=== PATIENT | male | born 1965 | race African-American/Black ===

== ENCOUNTER 2016-09-09 11:48 | Inpatient (IN) | payer OTHER ==
[2016-09-09 14:40] VITALS: BMI 33.2
[2016-09-09] MEDS ORDERED: IBUPROFEN 400 MG TABLET (FP) PO PRN (17:14)
[2016-09-09] MEDS ORDERED: MENTHOL/PHENOL 1 EACH UD MM PRN (17:14)
[2016-09-09] MEDS ORDERED: NICOTINE 14 MG/24 HOURS TOPICAL PATCH TD PRN (17:14)
[2016-09-09] MEDS ORDERED: MAGNESIUM HYDROX 2400MG/30ML ORAL SUSPENSION 30 ML CUP PO PRN (17:14)
[2016-09-09] MEDS ORDERED: guaiFENesin/D-METHORPHAN HB 10 ML UNIT-DOSE CUPS PO PRN (17:14)
[2016-09-09] MEDS ORDERED: MAG HYDROX/AL HYDROX/SIMETH 30 ML UNIT-DOSE CUP PO PRN (17:14)
[2016-09-09] MEDS ORDERED: hydrOXYzine PAMOATE 50 MG CAPSULE (FP) PO PRN (17:14)
[2016-09-09] MEDS ORDERED: NICOTINE POLACRILEX 2 MG GUM BUC PRN (17:14)
[2016-09-09] MEDS ORDERED: ACETAMINOPHEN 325 MG TABLET (FP) PO PRN (17:14)
[2016-09-09] MEDS ORDERED: MAGNESIUM CITRATE 300 ML BOTTLE PO PRN (17:14)
[2016-09-09] MEDS ORDERED: LOPERAMIDE HCL 2 MG CAPSULE PO PRN (17:14)
[2016-09-09] MEDS ORDERED: chlordiazePOXIDE HCL 25 MG CAPSULE PO PRN (17:14)
[2016-09-09] MEDS ORDERED: P-EPHED 60MG/TRIPROLIDI 2.5MG TABLET PO PRN (17:14)
--- NOTE | 2016-09-09 17:14 | HP ---
CIWA Score - CIWA Score Nausea/Vomitin-Mild Nausea/No Vomiting Muscle Tremors: 3 Anxiety: 4-Mod. Anxious/Guarded Agitation: 4-Moderately Restless Paroxysmal Sweats: 2 Orientation: 0-Oriented Tacttile Disturbances: 0-None Auditory Disturbances: 0-None Visual Disturbances: 0-None Headache: 2-Mild CIWA-Ar Total Score: 16 Admission ROS BHS - HPI Chief Complaint: withdrawal sx Allergies/Adverse Reactions: Allergies Allergy/AdvReac Type Severity Reaction Status Date / Time No Known Allergies Allergy Verified 09/09/16 16:26 History of Present Illness: 51 years old male with long history of alcohol cocaine nicotine dependence dejesus hypertension and depression, longest sobriety 5 years is admitted to detox Exam Limitations: No Limitations - Ebola screening Have you traveled outside of the country in the last 21 days: No Have you had contact with anyone from an Ebola affected area: No Have you been sick,other than usual withdrawal symptoms: No Do you have a fever: No - Review of Systems Constitutional: Chills, Changes in sleep, Weight Stable EENT: reports: Dental Problems (upper and lower denture) Respiratory: reports: No Symptoms reported Cardiac: reports: No Symptoms Reported GI: reports: Nausea, Poor Fluid Intake, Abdominal cramping : reports: No Symptoms Reported Musculoskeletal: reports: No Symptoms Reported Integumentary: reports: No Symptoms Reported Neuro: reports: Tremors Endocrine: reports: No Symptoms Reported Hematology: reports: No Symptoms Reported Psychiatric: reports: Judgement Intact, Orientated x3, Depressed Other Systems: Reviewed and Negative Patient History - Patient Medical History Hx Anemia: No Hx Asthma: No Hx Chronic Obstructive Pulmonary Disease (COPD): No Hx Cancer: No Hx Cardiac Disorders: No Hx Congestive Heart Failure: No Hx Hypertension: Yes (NON COMPLIANT WITH MEDS) Hx Hypercholesterolemia: No Hx Pacemaker: No HX Cerebrovascular Accident: No Hx Seizures: No Hx Dementia: No Hx Diabetes: No Hx Gastrointestinal Disorders: No Hx Liver Disease: No Hx Genitourinary Disorders: No Hx Sexually Transmitted Disorders: No Hx Renal Disease (ESRD): No Hx Thyroid Disease: No Hx Human Immunodeficiency Virus (HIV): No (NEGATIVE ON 11/24/11) Hx Hepatitis C: No (tested neg within last year) Hx Depression: Yes Hx Suicide Attempt: No Hx Bipolar Disorder: No Hx Schizophrenia: No - Patient Surgical History Past Surgical History: Yes Hx Neurologic Surgery: No Hx Cataract Extraction: No Hx Cardiac Surgery: No Hx Lung Surgery: No Hx Breast Surgery: No Hx Breast Biopsy: No Hx Abdominal Surgery: No Hx Appendectomy: No Hx Cholecystectomy: No Hx Genitourinary Surgery: No Hx Orthopedic Surgery: Yes (RIGHT THUMB DUE TO FX FROM PLAYING BALL) Anesthesia Reaction: No - PPD History Previous Implant?: Yes Documented Results: Negative w/o proof Implanted On Prior [facility] Admission?: Yes Date: 11/04/14 Results: 0 mm PPD to be Administered?: Yes - Smoking Cessation Smoking history: Current every day smoker Have you smoked in the past 12 months: Yes Aproximately how many cigarettes per day: 10 Cigars Per Day: 0 Hx Chewing Tobacco Use: No Initiated information on smoking cessation: Yes 'Breaking Loose' booklet given: 09/09/16 - Substance & Tx. History Hx Alcohol Use: Yes Hx Substance Use: Yes Substance Use Type: Alcohol, Cocaine Hx Substance Use Treatment: Yes - Substances Abused Alcohol Route: Oral Frequency: Daily Amount used: 1/2 PINT-1 PINT/ 6PK BEER Age of first use: 16 Date of Last Use: 09/09/16 Cocaine Route: Smoking Frequency: Daily Amount used: $100 Age of first use: 25 Date of Last Use: 09/08/16 Family Disease History - Family Disease History Family Disease History: Diabetes: Father (), Heart Disease: Father, CA: Mother () Admission Physical Exam BHS - Vital Signs Vital Signs: Vital Signs - 24 hr 09/09/16 14:39 Temperature 98.1 F Pulse Rate 99 H Respiratory 18 Rate Blood Pressure 145/84 - Physical General Appearance: Yes: Nourished, Appropriately Dressed, Mild Distress, Tremorous, Irritable, Sweating, Anxious HEENTM: Yes: Hearing grossly Normal, Normal ENT Inspection, Normocephalic, Normal Voice Respiratory: Yes: Chest Non-Tender, Lungs Clear, Normal Breath Sounds, No Respiratory Distress, No Accessory Muscle Use Neck: Yes: Supple, Trachea in good position Breast: Yes: Breasts Symetrical Cardiology: Yes: Regular Rhythm, S1, S2, Tachycardia Abdominal: Yes: Non Tender, Soft Genitourinary: Yes: Within Normal Limits Back: Yes: Normal Inspection Musculoskeletal: Yes: full range of Motion, Gait Steady Extremities: Yes: Normal Inspection, Normal Range of Motion, Non-Tender, Tremors 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: Yes: Fully Oriented, Alert, Motor Strength 5/5, Normal Response, Depressed Affect Integumentary: Yes: Warm Lymphatic: Yes: Within Normal Limits - Diagnostic (1) Alcohol dependence with uncomplicated withdrawal Current Visit: Yes Status: Acute (2) HTN (hypertension) Current Visit: Yes Status: Chronic Qualifiers: Hypertension type: essential hypertension Qualified Code(s): I10 - Essential (primary) hypertension (3) Cocaine dependence with withdrawal Current Visit: Yes Status: Chronic Cleared for Admission [facility] - Detox or Rehab [facility] Level of Care: Medically Managed Detox Regimen/Protocol: Librium [facility] Breath Alcohol Content Breath Alcohol Content: 0 Urine Drug Screen - Results Drug Screen Negative: No Urine Drug Screen Results: ACE-Cocaine
[2016-09-09] MEDS: HYDROCHLOROTHIAZIDE 25 MG TABLET (FP) PO SCH (18:35)
[2016-09-09] MEDS: THIAMINE HCL 100 MG TABLET (FP) PO SCH (22:13)
[2016-09-09] MEDS: diphenhydrAMINE HCL 50 MG CAPSULE PO PRN (22:13)
[2016-09-09] MEDS: chlordiazePOXIDE HCL 25 MG CAPSULE PO SCH (22:13)
[2016-09-09 23:24] LABS: URINE APPEARANCE CLEAR; URINE BILIRUBIN NEGATIVE (NEGATIVE); URINE BLOOD NEGATIVE (NEGATIVE); URINE COLOR YELLOW; URINE GLUCOSE (UA) NEGATIVE (NEGATIVE); URINE KETONE NEGATIVE (NEGATIVE); URINE LEUK ESTERASE NEGATIVE (NEGATIVE); URINE NITRITE NEGATIVE (NEGATIVE); URINE PROTEIN NEGATIVE (NEGATIVE); URINE UROBILINOGEN 2.0 E.U/dl E.U./dl (0.2-1.0)
[2016-09-10] MEDS: chlordiazePOXIDE HCL 25 MG CAPSULE PO SCH ×4 (05:37→22:12)
[2016-09-10] MEDS: HYDROCHLOROTHIAZIDE 25 MG TABLET (FP) PO SCH (10:20)
[2016-09-10] MEDS: PRENATAL VITAMINS W/ FOLIC ACID TABLET (FP) PO SCH (10:20)
--- NOTE | 2016-09-10 10:57 | CONSULT ---
[facility] Psychiatric Consult - Data Date of interview: 09/10/16 Admission source: [facility] Identifying data: Readmission to [facility] for this 51 y/o AA male seeking detox treatment for alcohol and cocaine dependence.Patient is single without children,homeless,unemployed and supported on Public Assistance. Substance Abuse History: - Smoking Cessation. Smoking history: Current every day smoker. Have you smoked in the past 12 months: Yes. Aproximately how many cigarettes per day: 10. Cigars Per Day: 0. Hx Chewing Tobacco Use: No. Initiated information on smoking cessation: Yes. 'Breaking Loose' booklet given : 09/09/16. - Substance & Tx. History. Hx Alcohol Use: Yes. Hx Substance Use : Yes. Substance Use Type: Alcohol, Cocaine. Hx Substance Use Treatment: Yes. - Substances Abused. Alcohol. Route: Oral. Frequency: Daily. Amount used: 1/2 PINT-1 PINT/ 6PK BEER. Age of first use: 16. Date of Last Use: 09/09. Cocaine. Route: Smoking. Frequency: Daily. Amount used: $100. Age of first use: 25. Date of Last Use: 09/08/16. Confirmed by patient. Medical History: Hypertension. Psychiatric History: Patient denies. Physical/Sexual Abuse/Trauma History: Patient denies. Additional Comment: Urine Drug Screen Results: ACE-Cocaine.Noted. Mental Status Exam - Mental Status Exam Alert and Oriented to: Time, Place, Person Cognitive Function: Good Patient Appearance: Well Groomed Mood: Hopeful, Euthymic Affect: Appropriate, Normal Range Patient Behavior: Fatigued, Cooperative Speech Pattern: Clear, Appropriate Voice Loudness: Normal Thought Process: Goal Oriented Thought Disorder: Not Present Hallucinations: Denies Suicidal Ideation: Denies Homicidal Ideation: Denies Insight/Judgement: Poor Sleep: Well Appetite: Good Muscle strength/Tone: Normal Gait/Station: Normal Psychiatric Findings - Problem List ([place] 1, 2,3) (1) Alcohol dependence with uncomplicated withdrawal Current Visit: Yes Status: Acute (2) Cocaine dependence with withdrawal Current Visit: Yes Status: Acute (3) Nicotine dependence Current Visit: Yes Status: Acute (4) HTN (hypertension) Current Visit: Yes Status: Chronic Qualifiers: Hypertension type: essential hypertension Qualified Code(s): I10 - Essential (primary) hypertension - Initial Treatment Plan Initial Treatment Plan: Psychoeducation.Detoxification.Observation.
[2016-09-10 11:16] LABS: MCHC 33.4 g/dl (32.0-35.9); MEAN CELL VOLUME 92.8 fl (80-96); MEAN PLT VOLUME 9.8 fl (7.5-11.1); PLATELET COUNT 193 K/MM3 (134-434); RDW 14.4 % (11.9-15.9); WHITE BLOOD COUNT 6.2 K/mm3 (4.0-10.0)
[2016-09-10 11:26] LABS: ALBUMIN 3.1 g/dl (3.4-5.0); ALK PHOS 176 U/L (45-117); ANION GAP 8 (8-16); BILIRUBIN,TOTAL 0.7 mg/dL (0.2-1.0); CALCIUM 8.6 mg/dL (8.5-10.1); CO2 27 mmol/L (21-32); COCKROFT - GAULT 116.19; GLUCOSE,RANDOM 86 mg/dL (74-106); SGOT/AST 122 U/L (15-37); SGPT/ALT 166 U/L (12-78); TOT PROT 6.9 g/dl (6.4-8.2)
--- NOTE | 2016-09-10 11:26 | EKG ---
Test Reason : Blood Pressure : / mmHG Vent. Rate : 093 BPM Atrial Rate : 093 BPM P-R Int : 154 ms QRS Dur : 090 ms QT Int : 384 ms P-R-T Axes : 063 057 052 degrees QTc Int : 477 ms NORMAL SINUS RHYTHM NORMAL ECG NO PREVIOUS ECGS AVAILABLE Confirmed by DIEGO STEINER MD ([id number]) on 09/10/2016 11:25:46 AM Referred By: Confirmed By:DIEGO STEINER MD
[2016-09-10 12:26] LABS: HIV 1 & 2 AB NEGATIVE; HIV 1 AGp24 NEGATIVE
--- NOTE | 2016-09-10 13:36 | PN ---
[facility] CIWA - CIWA Score Nausea/Vomitin-Mild Nausea/No Vomiting Muscle Tremors: 4-Moderate,w/Arms Extend Anxiety: 3 Agitation: 2 Paroxysmal Sweats: 1-Minimal Palms Moist Orientation: 0-Oriented Tacttile Disturbances: 0-None Auditory Disturbances: 1-Very Mild Visual Disturbances: 3-Moderate Sensitivity Headache: 0-None Present CIWA-Ar Total Score: 15 S Progress Note (SOAP) Subjective: Tremors, H/A, Anxious. Objective: PT. A & O X 3. PT. REPORTS HISTORY OF HTN. PT. DENIES CHEST PAIN. 09/10/16 13:36 Vital Signs Temperature 96.4 F L 09/10/16 13:35 Pulse Rate 101 H 09/10/16 13:35 Respiratory Rate 16 09/10/16 13:35 Blood Pressure 143/95 09/10/16 13:35 O2 Sat by Pulse Oximetry (%) Laboratory Last Values WBC 6.2 K/mm3 (4.0-10.0) 09/10/16 07:40 RBC 4.72 M/mm3 (4.00-5.60) 09/10/16 07:40 Hgb 14.6 GM/dL (11.7-16.9) 09/10/16 07:40 Hct 43.8 % (35.4-49) 09/10/16 07:40 MCV 92.8 fl (80-96) 09/10/16 07:40 MCHC 33.4 g/dl (32.0-35.9) 09/10/16 07:40 RDW 14.4 % (11.9-15.9) 09/10/16 07:40 Plt Count 193 K/MM3 (134-434) 09/10/16 07:40 MPV 9.8 fl (7.5-11.1) 09/10/16 07:40 Sodium 140 mmol/L (136-145) 09/10/16 07:40 Potassium 4.1 mmol/L (3.5-5.1) 09/10/16 07:40 Chloride 105 mmol/L (98-107) 09/10/16 07:40 Carbon Dioxide 27 mmol/L (21-32) 09/10/16 07:40 Anion Gap 8 (8-16) 09/10/16 07:40 BUN 15 mg/dL (7-18) D 09/10/16 07:40 Creatinine 1.0 mg/dL (0.7-1.3) 09/10/16 07:40 Creat Clearance w eGFR > 60 (>60) 09/10/16 07:40 Random Glucose 86 mg/dL (74-106) 09/10/16 07:40 Calcium 8.6 mg/dL (8.5-10.1) 09/10/16 07:40 Total Bilirubin 0.7 mg/dL (0.2-1.0) D 09/10/16 07:40 AST 122 U/L (15-37) H 09/10/16 07:40 ALT 166 U/L (12-78) H 09/10/16 07:40 Alkaline Phosphatase 176 U/L (45-117) H D 09/10/16 07:40 Total Protein 6.9 g/dl (6.4-8.2) 09/10/16 07:40 Albumin 3.1 g/dl (3.4-5.0) L 09/10/16 07:40 Urine Color Yellow 09/09/16 21:24 Urine Appearance Clear 09/09/16 21:24 Urine pH 5.0 (5.0-8.0) 09/09/16 21:24 Ur Specific [place] 1.025 (1.001-1.035) 09/09/16 21:24 Urine Protein Negative (NEGATIVE) 09/09/16 21:24 Urine Glucose (UA) Negative (NEGATIVE) 09/09/16 21:24 Urine Ketones Negative (NEGATIVE) 09/09/16 21:24 Urine Blood Negative (NEGATIVE) 09/09/16 21:24 Urine Nitrite Negative (NEGATIVE) 09/09/16 21:24 Urine Bilirubin Negative (NEGATIVE) 09/09/16 21:24 Urine Urobilinogen 2.0 e.u/dl E.U./dl (0.2-1.0) 09/09/16 21:24 Ur Leukocyte Esterase Negative (NEGATIVE) 09/09/16 21:24 RPR Titer Nonreactive (NONREACTIVE) 09/10/16 07:40 HIV 1&2 Antibody Screen Negative 09/10/16 07:40 HIV P24 Antigen Negative 09/10/16 07:40 LABS NOTED. 09/10/16 13:39 Assessment: 09/10/16 13:38 WITHDRAWAL SYMPTOMS. Plan: CONTINUE DETOX. CONTINUE TO MONITOR BP. ADVISED PATIENT TO FOLLOW-UP WITH CATTLE CARE WORKER / REHAB MEDICAL PROVIDER AFTER DISCHARGE FROM DETOX FOR GENERAL MEDICAL ASSESSMENT AND FOR ABNORMAL ADMISSION LAB VALUES.
[2016-09-10] MEDS: THIAMINE HCL 100 MG TABLET (FP) PO SCH (22:12)
[2016-09-10] MEDS: diphenhydrAMINE HCL 50 MG CAPSULE PO PRN (22:13)
[2016-09-11] MEDS: chlordiazePOXIDE HCL 25 MG CAPSULE PO SCH ×3 (06:11→17:30)
[2016-09-11] MEDS: PRENATAL VITAMINS W/ FOLIC ACID TABLET (FP) PO SCH (10:17)
[2016-09-11] MEDS: HYDROCHLOROTHIAZIDE 25 MG TABLET (FP) PO SCH (10:17)
--- NOTE | 2016-09-11 12:58 | PN ---
S CIWA - CIWA Score Nausea/Vomitin-Mild Nausea/No Vomiting Muscle Tremors: 3 Anxiety: 4-Mod. Anxious/Guarded Agitation: 4-Moderately Restless Paroxysmal Sweats: No Perspiration Orientation: 0-Oriented Tacttile Disturbances: 1-Very Mild Itch/Numbness Auditory Disturbances: 0-None Visual Disturbances: 0-None Headache: 2-Mild CIWA-Ar Total Score: 15 BHS Progress Note (SOAP) Subjective: Anxious, restless, interrupted sleep, diarrhea Objective: 09/11/16 12:53 Last Vital Signs Temp Pulse Resp BP Pulse Ox 96.1 F L 98 H 18 146/92 09/11/16 09:47 09/11/16 09:47 09/11/16 09:47 09/11/16 09:47 Laboratory Tests 09/09/16 09/10/16 09/10/16 21:24 07:40 07:40 WBC 6.2 RBC 4.72 Hgb 14.6 Hct 43.8 MCV 92.8 MCHC 33.4 RDW 14.4 Plt Count 193 MPV 9.8 Sodium Potassium Chloride Carbon Dioxide Anion Gap BUN Creatinine Creat Clearance w eGFR Random Glucose Calcium Total Bilirubin AST ALT Alkaline Phosphatase Total Protein Albumin Urine Color Yellow Urine Appearance Clear Urine pH 5.0 Ur Specific [place] 1.025 Urine Protein Negative Urine Glucose (UA) Negative Urine Ketones Negative Urine Blood Negative Urine Nitrite Negative Urine Bilirubin Negative Urine Urobilinogen 2.0 e.u/dl Ur Leukocyte Esterase Negative RPR Titer HIV 1&2 Antibody Screen Negative HIV P24 Antigen Negative 09/10/16 09/10/16 07:40 07:40 WBC RBC Hgb Hct MCV MCHC RDW Plt Count MPV Sodium 140 Potassium 4.1 Chloride 105 Carbon Dioxide 27 Anion Gap 8 BUN 15 D Creatinine 1.0 Creat Clearance w eGFR > 60 Random Glucose 86 Calcium 8.6 Total Bilirubin 0.7 D AST 122 H ALT 166 H Alkaline Phosphatase 176 H D Total Protein 6.9 Albumin 3.1 L Urine Color Urine Appearance Urine pH Ur Specific [place] Urine Protein Urine Glucose (UA) Urine Ketones Urine Blood Urine Nitrite Urine Bilirubin Urine Urobilinogen Ur Leukocyte Esterase RPR Titer Nonreactive HIV 1&2 Antibody Screen HIV P24 Antigen Labs noted Assessment: 09/11/16 12:54 Withdrawal symptoms Plan: Continue detox, encouraged to drink lots of water. Add clonidine 0.1mg PO Q8hr prn for b/p > 140/90, continue HCTZ 25mg PO daily for HTN), continue to monitor ; consider adding norvasc 5mg PO daily if warranted.
[2016-09-11] MEDS: cloNIDine HCL 0.1 MG TABLET PO PRN (13:23)
[2016-09-11] MEDS: chlordiazePOXIDE 5 MG CAPSULE PO SCH (22:33)
[2016-09-11] MEDS: THIAMINE HCL 100 MG TABLET (FP) PO SCH (22:33)
[2016-09-11] MEDS: diphenhydrAMINE HCL 50 MG CAPSULE PO PRN (22:33)
[2016-09-12] MEDS: chlordiazePOXIDE 5 MG CAPSULE PO SCH ×3 (06:00→17:50)
[2016-09-12] MEDS: cloNIDine HCL 0.1 MG TABLET PO PRN (06:26)
[2016-09-12] MEDS: PRENATAL VITAMINS W/ FOLIC ACID TABLET (FP) PO SCH (10:08)
[2016-09-12] MEDS: HYDROCHLOROTHIAZIDE 25 MG TABLET (FP) PO SCH (10:08)
--- NOTE | 2016-09-12 11:19 | PN ---
BHS Progress Note (SOAP) Subjective: Sweating,interrupted sleep,restless Objective: 09/12/16 11:18 Vital Signs - 8 hr 09/12/16 09/12/16 09/12/16 03:36 06:40 09:09 Temperature 96.4 F L 96.3 F L Pulse Rate 95 H 95 H Respiratory 18 18 20 Rate Blood Pressure 143/103 127/89 Laboratory Last Values WBC 6.2 K/mm3 (4.0-10.0) 09/10/16 07:40 RBC 4.72 M/mm3 (4.00-5.60) 09/10/16 07:40 Hgb 14.6 GM/dL (11.7-16.9) 09/10/16 07:40 Hct 43.8 % (35.4-49) 09/10/16 07:40 MCV 92.8 fl (80-96) 09/10/16 07:40 MCHC 33.4 g/dl (32.0-35.9) 09/10/16 07:40 RDW 14.4 % (11.9-15.9) 09/10/16 07:40 Plt Count 193 K/MM3 (134-434) 09/10/16 07:40 MPV 9.8 fl (7.5-11.1) 09/10/16 07:40 Sodium 140 mmol/L (136-145) 09/10/16 07:40 Potassium 4.1 mmol/L (3.5-5.1) 09/10/16 07:40 Chloride 105 mmol/L (98-107) 09/10/16 07:40 Carbon Dioxide 27 mmol/L (21-32) 09/10/16 07:40 Anion Gap 8 (8-16) 09/10/16 07:40 BUN 15 mg/dL (7-18) D 09/10/16 07:40 Creatinine 1.0 mg/dL (0.7-1.3) 09/10/16 07:40 Creat Clearance w eGFR > 60 (>60) 09/10/16 07:40 Random Glucose 86 mg/dL (74-106) 09/10/16 07:40 Calcium 8.6 mg/dL (8.5-10.1) 09/10/16 07:40 Total Bilirubin 0.7 mg/dL (0.2-1.0) D 09/10/16 07:40 AST 122 U/L (15-37) H 09/10/16 07:40 ALT 166 U/L (12-78) H 09/10/16 07:40 Alkaline Phosphatase 176 U/L (45-117) H D 09/10/16 07:40 Total Protein 6.9 g/dl (6.4-8.2) 09/10/16 07:40 Albumin 3.1 g/dl (3.4-5.0) L 09/10/16 07:40 Urine Color Yellow 09/09/16 21:24 Urine Appearance Clear 09/09/16 21:24 Urine pH 5.0 (5.0-8.0) 09/09/16 21:24 Ur Specific [place] 1.025 (1.001-1.035) 09/09/16 21:24 Urine Protein Negative (NEGATIVE) 09/09/16 21:24 Urine Glucose (UA) Negative (NEGATIVE) 09/09/16 21:24 Urine Ketones Negative (NEGATIVE) 09/09/16 21:24 Urine Blood Negative (NEGATIVE) 09/09/16 21:24 Urine Nitrite Negative (NEGATIVE) 09/09/16 21:24 Urine Bilirubin Negative (NEGATIVE) 09/09/16 21:24 Urine Urobilinogen 2.0 e.u/dl E.U./dl (0.2-1.0) 09/09/16 21:24 Ur Leukocyte Esterase Negative (NEGATIVE) 09/09/16 21:24 RPR Titer Nonreactive (NONREACTIVE) 09/10/16 07:40 HIV 1&2 Antibody Screen Negative 09/10/16 07:40 HIV P24 Antigen Negative 09/10/16 07:40 labs noted Assessment: 09/12/16 11:18 Withdrawal sx. Plan: Continue detox
[2016-09-12] MEDS: chlordiazePOXIDE HCL 10 MG CAPSULE PO SCH (22:11)
[2016-09-12] MEDS: diphenhydrAMINE HCL 50 MG CAPSULE PO PRN (22:11)
[2016-09-12] MEDS: THIAMINE HCL 100 MG TABLET (FP) PO SCH (22:11)
[2016-09-13] MEDS: chlordiazePOXIDE HCL 10 MG CAPSULE PO SCH (05:38)
[2016-09-13] MEDS: cloNIDine HCL 0.1 MG TABLET PO PRN (06:21)
[2016-09-13 09:34] VITALS: BP 132/78; PULSE 84; TEMP 96.4
--- NOTE | 2016-09-13 09:47 | DS ---
[facility] Detox Discharge Summary Admission Date: 09/09/16 Discharge Date: 09/13/16 - History Present History: Alcohol Dependence, Cannabis Dependence, Cocaine Dependence Pertinent Past History: HTN - Physical Exam Results Vital Signs: Vital Signs Temperature 96.4 F L 09/13/16 09:33 Pulse Rate 84 09/13/16 09:33 Respiratory Rate 18 09/13/16 09:33 Blood Pressure 132/78 09/13/16 09:33 O2 Sat by Pulse Oximetry (%) Pertinent Admission Physical Exam Findings: Withdrawal sx. Laboratory Last Values WBC 6.2 K/mm3 (4.0-10.0) 09/10/16 07:40 RBC 4.72 M/mm3 (4.00-5.60) 09/10/16 07:40 Hgb 14.6 GM/dL (11.7-16.9) 09/10/16 07:40 Hct 43.8 % (35.4-49) 09/10/16 07:40 MCV 92.8 fl (80-96) 09/10/16 07:40 MCHC 33.4 g/dl (32.0-35.9) 09/10/16 07:40 RDW 14.4 % (11.9-15.9) 09/10/16 07:40 Plt Count 193 K/MM3 (134-434) 09/10/16 07:40 MPV 9.8 fl (7.5-11.1) 09/10/16 07:40 Sodium 140 mmol/L (136-145) 09/10/16 07:40 Potassium 4.1 mmol/L (3.5-5.1) 09/10/16 07:40 Chloride 105 mmol/L (98-107) 09/10/16 07:40 Carbon Dioxide 27 mmol/L (21-32) 09/10/16 07:40 Anion Gap 8 (8-16) 09/10/16 07:40 BUN 15 mg/dL (7-18) D 09/10/16 07:40 Creatinine 1.0 mg/dL (0.7-1.3) 09/10/16 07:40 Creat Clearance w eGFR > 60 (>60) 09/10/16 07:40 Random Glucose 86 mg/dL (74-106) 09/10/16 07:40 Calcium 8.6 mg/dL (8.5-10.1) 09/10/16 07:40 Total Bilirubin 0.7 mg/dL (0.2-1.0) D 09/10/16 07:40 AST 122 U/L (15-37) H 09/10/16 07:40 ALT 166 U/L (12-78) H 09/10/16 07:40 Alkaline Phosphatase 176 U/L (45-117) H D 09/10/16 07:40 Total Protein 6.9 g/dl (6.4-8.2) 09/10/16 07:40 Albumin 3.1 g/dl (3.4-5.0) L 09/10/16 07:40 Urine Color Yellow 09/09/16 21:24 Urine Appearance Clear 09/09/16 21:24 Urine pH 5.0 (5.0-8.0) 09/09/16 21:24 Ur Specific [place] 1.025 (1.001-1.035) 09/09/16 21:24 Urine Protein Negative (NEGATIVE) 09/09/16 21:24 Urine Glucose (UA) Negative (NEGATIVE) 09/09/16 21:24 Urine Ketones Negative (NEGATIVE) 09/09/16 21:24 Urine Blood Negative (NEGATIVE) 09/09/16 21:24 Urine Nitrite Negative (NEGATIVE) 09/09/16 21:24 Urine Bilirubin Negative (NEGATIVE) 09/09/16 21:24 Urine Urobilinogen 2.0 e.u/dl E.U./dl (0.2-1.0) 09/09/16 21:24 Ur Leukocyte Esterase Negative (NEGATIVE) 09/09/16 21:24 RPR Titer Nonreactive (NONREACTIVE) 09/10/16 07:40 HIV 1&2 Antibody Screen Negative 09/10/16 07:40 HIV P24 Antigen Negative 09/10/16 07:40 labs noted - Treatment Hospital Course: Detox Protocol Followed, Detoxed Safely, Responded well, Discharged Condition Good, Rehab Referral Accepted Patient has Accepted a Rehab Referral to: [facility] - Medication Discharge Medications: Ambulatory Orders Hctz 25Mg/Triamterene [Dyazide 25/37.5 -] 1 cap PO DAILY #30 cap 09/13/16 - Diagnosis (1) Alcohol dependence with uncomplicated withdrawal Current Visit: Yes Status: Acute (2) Cocaine dependence with withdrawal Current Visit: Yes Status: Acute (3) Nicotine dependence Current Visit: Yes Status: Acute Qualifiers: Nicotine product type: cigarettes Substance use status: uncomplicated Qualified Code(s): F17.210 - Nicotine dependence, cigarettes, uncomplicated (4) HTN (hypertension) Current Visit: Yes Status: Chronic Qualifiers: Hypertension type: essential hypertension Qualified Code(s): I10 - Essential (primary) hypertension (5) Cannabis dependence Current Visit: Yes Status: Acute - AMA Did Patient Leave Against Medical Advice: No
== END 2016-09-13 09:44 | disposition home or self-care (01) | DRG 774 ==
LOC: YASAS 11:48 → Y3N 17:21
PROVIDERS: ADMIT Internal Medicine; ATTEND Internal Medicine
PROC: HZ2ZZZZ Detoxification Services for Substance Abuse Treatment (ICD-10-PCS; principal; 2016-09-13)
DX: F10.230 Alcohol dependence with withdrawal, uncomplicated (principal); F14.20 Cocaine dependence, uncomplicated; F12.20 Cannabis dependence, uncomplicated; F17.210 Nicotine dependence, cigarettes, uncomplicated; F32.9 Major depressive disorder, single episode, unspecified; I10 Essential (primary) hypertension; Z91.14 Patient's other noncompliance with medication regimen
CPT/HCPCS: 36415; 80053; 81003; 85027; 86593; 87389; 93005; 93010

== ENCOUNTER 2016-12-10 15:28 | Inpatient (IN) | payer OTHER ==
[2016-12-10 16:05] VITALS: BMI 31.6
--- NOTE | 2016-12-10 17:30 | HP ---
CIWA Score - CIWA Score Nausea/Vomitin Muscle Tremors: 3 Anxiety: 3 Agitation: 3 Paroxysmal Sweats: 3 Orientation: 2-Disoriented Date<2 days Tacttile Disturbances: 0-None Auditory Disturbances: 0-None Visual Disturbances: 0-None Headache: 0-None Present CIWA-Ar Total Score: 17 Admission ROS BHS - HPI Chief Complaint: Withdrawal sx. Allergies/Adverse Reactions: Allergies Allergy/AdvReac Type Severity Reaction Status Date / Time No Known Allergies Allergy Verified 09/09/16 16:26 History of Present Illness: 51 y/o man with a long hx. of alcoholism is admitted for detox.Pt. has been in previous detox,denies significant sobriety. Exam Limitations: No Limitations - Ebola screening Have you traveled outside of the country in the last 21 days: No Have you had contact with anyone from an Ebola affected area: No Have you been sick,other than usual withdrawal symptoms: No Do you have a fever: No - Review of Systems Constitutional: Diaphoresis EENT: reports: No Symptoms Reported Respiratory: reports: No Symptoms reported Cardiac: reports: No Symptoms Reported GI: reports: Nausea, Abdominal cramping : reports: No Symptoms Reported Musculoskeletal: reports: Joint Pain Integumentary: reports: Sweating Neuro: reports: Tremors Endocrine: reports: No Symptoms Reported Hematology: reports: No Symptoms Reported Psychiatric: reports: No Sypmtoms Reported Other Systems: Reviewed and Negative Patient History - Patient Medical History Hx Anemia: No Hx Asthma: No Hx Chronic Obstructive Pulmonary Disease (COPD): No Hx Cancer: No Hx Cardiac Disorders: No Hx Congestive Heart Failure: No Hx Hypertension: Yes Hx Hypercholesterolemia: No Hx Pacemaker: No HX Cerebrovascular Accident: No Hx Seizures: No Hx Dementia: No Hx Diabetes: No Hx Gastrointestinal Disorders: No Hx Liver Disease: No Hx Genitourinary Disorders: No Hx Sexually Transmitted Disorders: No Hx Renal Disease (ESRD): No Hx Thyroid Disease: No Hx Human Immunodeficiency Virus (HIV): No Hx Hepatitis C: No Hx Depression: Yes (no meds) Hx Suicide Attempt: No Hx Bipolar Disorder: No Hx Schizophrenia: No - Patient Surgical History Past Surgical History: Yes Hx Neurologic Surgery: No Hx Cataract Extraction: No Hx Cardiac Surgery: No Hx Lung Surgery: No Hx Breast Surgery: No Hx Breast Biopsy: No Hx Abdominal Surgery: No Hx Appendectomy: No Hx Cholecystectomy: No Hx Genitourinary Surgery: No Hx Section: No Hx Orthopedic Surgery: Yes (RIGHT THUMB DUE TO FX FROM PLAYING BALL) Anesthesia Reaction: No - PPD History Date: 09/11/16 Results: 0 mm PPD to be Administered?: No - Smoking Cessation Smoking history: Current every day smoker Have you smoked in the past 12 months: Yes Aproximately how many cigarettes per day: 10 Cigars Per Day: 0 Hx Chewing Tobacco Use: No Initiated information on smoking cessation: Yes 'Breaking Loose' booklet given: 12/10/16 - Substances Abused Alcohol Route: Oral Frequency: Daily Amount used: beer 1 1/2(6pack) Age of first use: Date of Last Use: 12/10/16 Crack Route: Smoking Frequency: Daily Amount used: $100.00 Age of first use: 25 Date of Last Use: 12/10/16 Marijuana/Hashish Route: Smoking Frequency: Daily Amount used: 1 joint Age of first use: Date of Last Use: 12/08/16 Family Disease History - Family Disease History Family Disease History: Diabetes: Father (), Heart Disease: Father, [place]: Mother () Admission Physical Exam S - Vital Signs Vital Signs: Vital Signs - 24 hr 12/10/16 15:58 Temperature 97.5 F L Pulse Rate 91 H Respiratory 20 Rate Blood Pressure 119/77 - Physical General Appearance: Yes: Alcohol on Breath, Tremorous, Irritable, Sweating, Anxious HEENTM: Yes: Within Normal Limits Respiratory: Yes: Chest Non-Tender, Lungs Clear, Normal Breath Sounds Neck: Yes: Supple Breast: Yes: Breast Exam Deferred Cardiology: Yes: Regular Rhythm, Regular Rate, S1, S2 Abdominal: Yes: Normal Bowel Sounds, Non Tender, Soft Genitourinary: Yes: Within Normal Limits Back: Yes: Within Normal Limits Musculoskeletal: Yes: Within Normal Limits Extremities: Yes: Tremors 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: Yes: Fully Oriented, Alert Integumentary: Yes: Diaphoresis Lymphatic: Yes: Within Normal Limits - Diagnostic (1) Alcohol dependence with uncomplicated withdrawal Current Visit: Yes Status: Acute (2) Cannabis dependence Current Visit: Yes Status: Acute (3) Cocaine dependence with withdrawal Current Visit: Yes Status: Acute (4) HTN (hypertension) Current Visit: Yes Status: Chronic Qualifiers: Hypertension type: essential hypertension Qualified Code(s): I10 - Essential (primary) hypertension Cleared for Admission [facility] - Detox or Rehab [facility] Level of Care: Medically Managed Detox Regimen/Protocol: Librium [facility] Breath Alcohol Content Breath Alcohol Content: 0.042 Urine Drug Screen - Results Drug Screen Negative: No Urine Drug Screen Results: THC-Marijuana, ACE-Cocaine, BZO-Benzodiazepines
[2016-12-10] MEDS ORDERED: P-EPHED 60MG/TRIPROLIDI 2.5MG TABLET PO PRN (17:40)
[2016-12-10] MEDS ORDERED: guaiFENesin/D-METHORPHAN HB 10 ML UNIT-DOSE CUPS PO PRN (17:40)
[2016-12-10] MEDS ORDERED: MENTHOL/PHENOL 1 EACH UD MM PRN (17:40)
[2016-12-10] MEDS ORDERED: ACETAMINOPHEN 325 MG TABLET (FP) PO PRN (17:40)
[2016-12-10] MEDS ORDERED: LOPERAMIDE HCL 2 MG CAPSULE PO PRN (17:40)
[2016-12-10] MEDS ORDERED: MAGNESIUM CITRATE 300 ML BOTTLE PO PRN (17:40)
[2016-12-10] MEDS ORDERED: chlordiazePOXIDE HCL 25 MG CAPSULE PO PRN (17:40)
[2016-12-10] MEDS ORDERED: NICOTINE POLACRILEX 2 MG GUM BUC PRN (17:40)
[2016-12-10] MEDS ORDERED: chlordiazePOXIDE HCL 25 MG CAPSULE PO ONE (17:40)
[2016-12-10] MEDS ORDERED: IBUPROFEN 400 MG TABLET (FP) PO PRN (17:40)
[2016-12-10] MEDS ORDERED: MAGNESIUM HYDROX 2400MG/30ML ORAL SUSPENSION 30 ML CUP PO PRN (17:40)
[2016-12-10] MEDS: NICOTINE 21 MG/24 HOURS TOPICAL PATCH TD SCH (19:13)
[2016-12-10 22:30] LABS: URINE APPEARANCE CLEAR; URINE BILIRUBIN NEGATIVE (NEGATIVE); URINE BLOOD NEGATIVE (NEGATIVE); URINE COLOR AMBER; URINE GLUCOSE (UA) NEGATIVE (NEGATIVE); URINE KETONE NEGATIVE (NEGATIVE); URINE LEUK ESTERASE NEGATIVE (NEGATIVE); URINE NITRITE NEGATIVE (NEGATIVE); URINE PROTEIN NEGATIVE (NEGATIVE)
[2016-12-10] MEDS: THIAMINE HCL 100 MG TABLET (FP) PO SCH (22:38)
[2016-12-10] MEDS: chlordiazePOXIDE HCL 25 MG CAPSULE PO SCH (22:38)
[2016-12-10] MEDS: diphenhydrAMINE HCL 50 MG CAPSULE PO PRN (22:39)
[2016-12-11] MEDS: chlordiazePOXIDE HCL 25 MG CAPSULE PO SCH ×4 (05:37→22:21)
[2016-12-11 10:30] LABS: ALBUMIN 2.8 g/dl (3.4-5.0); ANION GAP 5 (8-16); CALCIUM 8.4 mg/dL (8.5-10.1); CO2 28 mmol/L (21-32); CREATININE 1.1 mg/dL (0.7-1.3); GLUCOSE,RANDOM 88 mg/dL (74-106); SGOT/AST 90 U/L (15-37); SGPT/ALT 129 U/L (12-78)
[2016-12-11 10:32] LABS: ALK PHOS 167 U/L (45-117); BILIRUBIN,TOTAL 0.4 mg/dL (0.2-1.0); MCH 31.2 pg (25.7-33.7); MCHC 34.3 g/dl (32.0-35.9); MEAN CELL VOLUME 90.9 fl (80-96); MEAN PLT VOLUME 9.6 fl (7.5-11.1); PLATELET COUNT 190 K/MM3 (134-434); RDW 13.9 % (11.9-15.9); TOT PROT 6.3 g/dl (6.4-8.2); WHITE BLOOD COUNT 5.7 K/mm3 (4.0-10.0)
[2016-12-11] MEDS: HYDROCHLOROTHIAZIDE 25 MG TABLET (FP) PO SCH (10:47)
[2016-12-11] MEDS: PRENATAL VITAMINS W/ FOLIC ACID TABLET (FP) PO SCH (10:47)
[2016-12-11] MEDS: NICOTINE 21 MG/24 HOURS TOPICAL PATCH TD SCH (10:47)
--- NOTE | 2016-12-11 16:36 | PN ---
S CIWA - CIWA Score Nausea/Vomitin Muscle Tremors: 4-Moderate,w/Arms Extend Anxiety: 4-Mod. Anxious/Guarded Agitation: 4-Moderately Restless Paroxysmal Sweats: 3 Orientation: 0-Oriented Tacttile Disturbances: 1-Very Mild Itch/Numbness Auditory Disturbances: 0-None Visual Disturbances: 0-None Headache: 2-Mild CIWA-Ar Total Score: 21 BHS Progress Note (SOAP) Subjective: Sweating, anxious, chills, tremor, interrupted sleep Objective: 12/11/16 16:34 Last Vital Signs Temp Pulse Resp BP Pulse Ox 96.4 F L 81 18 140/83 12/11/16 14:09 12/11/16 14:09 12/11/16 14:09 12/11/16 14:09 Laboratory Tests 12/10/16 12/11/16 12/11/16 21:00 07:45 07:45 WBC 5.7 RBC 4.45 Hgb 13.9 Hct 40.4 MCV 90.9 MCH 31.2 MCHC 34.3 RDW 13.9 Plt Count 190 MPV 9.6 Sodium 140 Potassium 4.0 Chloride 107 Carbon Dioxide 28 Anion Gap 5 L BUN 16 Creatinine 1.1 Creat Clearance w eGFR > 60 Random Glucose 88 Calcium 8.4 L Total Bilirubin 0.4 D AST 90 H D ALT 129 H D Alkaline Phosphatase 167 H Total Protein 6.3 L Albumin 2.8 L Urine Color Nneka Urine Appearance Clear Urine pH 5.0 Ur Specific [place] >= 1.030 H Urine Protein Negative Urine Glucose (UA) Negative Urine Ketones Negative Urine Blood Negative Urine Nitrite Negative Urine Bilirubin Negative Urine Urobilinogen 2.0 Ur Leukocyte Esterase Negative RPR Titer 12/11/16 07:45 WBC RBC Hgb Hct MCV MCH MCHC RDW Plt Count MPV Sodium Potassium Chloride Carbon Dioxide Anion Gap BUN Creatinine Creat Clearance w eGFR Random Glucose Calcium Total Bilirubin AST ALT Alkaline Phosphatase Total Protein Albumin Urine Color Urine Appearance Urine pH Ur Specific [place] Urine Protein Urine Glucose (UA) Urine Ketones Urine Blood Urine Nitrite Urine Bilirubin Urine Urobilinogen Ur Leukocyte Esterase RPR Titer Nonreactive Labs noted Assessment: 12/11/16 16:35 Withdrawal symptoms Plan: Continue detox Encouraged to drink lots of water
[2016-12-11] MEDS: THIAMINE HCL 100 MG TABLET (FP) PO SCH (22:21)
[2016-12-11] MEDS: diphenhydrAMINE HCL 50 MG CAPSULE PO PRN (22:21)
[2016-12-12] MEDS: chlordiazePOXIDE HCL 25 MG CAPSULE PO SCH ×3 (06:02→17:12)
--- NOTE | 2016-12-12 09:59 | EKG ---
Test Reason : Blood Pressure : / mmHG Vent. Rate : 078 BPM Atrial Rate : 078 BPM P-R Int : 154 ms QRS Dur : 088 ms QT Int : 424 ms P-R-T Axes : 054 045 050 degrees QTc Int : 483 ms NORMAL SINUS RHYTHM PROLONGED QT ABNORMAL ECG WHEN COMPARED WITH ECG OF 09-SEP-2016 17:38, NO SIGNIFICANT CHANGE WAS FOUND Confirmed by MARIS CHAVEZ MD ([id number]) on 12/12/2016 9:58:39 AM Referred By: Confirmed By:MARIS CHAVEZ MD
[2016-12-12] MEDS: HYDROCHLOROTHIAZIDE 25 MG TABLET (FP) PO SCH (10:49)
[2016-12-12] MEDS: NICOTINE 21 MG/24 HOURS TOPICAL PATCH TD SCH (10:49)
[2016-12-12] MEDS: PRENATAL VITAMINS W/ FOLIC ACID TABLET (FP) PO SCH (10:49)
--- NOTE | 2016-12-12 13:24 | PN ---
[facility] CIWA - CIWA Score Nausea/Vomitin-No Nausea/No Vomiting Muscle Tremors: 3 Anxiety: 3 Agitation: 3 Paroxysmal Sweats: 3 Orientation: 0-Oriented Tacttile Disturbances: 0-None Auditory Disturbances: 0-None Visual Disturbances: 0-None Headache: 0-None Present CIWA-Ar Total Score: 12 S Progress Note (SOAP) Subjective: Sweating,interrupted sleep,restless,tremors,anxiety. Objective: 12/12/16 13:23 Vital Signs - 8 hr 12/12/16 12/12/16 12/12/16 06:26 07:35 09:34 Temperature 97 F L 97.9 F Pulse Rate 87 82 90 Respiratory 18 18 Rate Blood Pressure 154/92 120/81 141/101 Laboratory Last Values WBC 5.7 K/mm3 (4.0-10.0) 12/11/16 07:45 RBC 4.45 M/mm3 (4.00-5.60) 12/11/16 07:45 Hgb 13.9 GM/dL (11.7-16.9) 12/11/16 07:45 Hct 40.4 % (35.4-49) 12/11/16 07:45 MCV 90.9 fl (80-96) 12/11/16 07:45 MCH 31.2 pg (25.7-33.7) 12/11/16 07:45 MCHC 34.3 g/dl (32.0-35.9) 12/11/16 07:45 RDW 13.9 % (11.9-15.9) 12/11/16 07:45 Plt Count 190 K/MM3 (134-434) 12/11/16 07:45 MPV 9.6 fl (7.5-11.1) 12/11/16 07:45 Sodium 140 mmol/L (136-145) 12/11/16 07:45 Potassium 4.0 mmol/L (3.5-5.1) 12/11/16 07:45 Chloride 107 mmol/L (98-107) 12/11/16 07:45 Carbon Dioxide 28 mmol/L (21-32) 12/11/16 07:45 Anion Gap 5 (8-16) L 12/11/16 07:45 BUN 16 mg/dL (7-18) 12/11/16 07:45 Creatinine 1.1 mg/dL (0.7-1.3) 12/11/16 07:45 Creat Clearance w eGFR > 60 (>60) 12/11/16 07:45 Random Glucose 88 mg/dL (74-106) 12/11/16 07:45 Calcium 8.4 mg/dL (8.5-10.1) L 12/11/16 07:45 Total Bilirubin 0.4 mg/dL (0.2-1.0) D 12/11/16 07:45 AST 90 U/L (15-37) H D 12/11/16 07:45 ALT 129 U/L (12-78) H D 12/11/16 07:45 Alkaline Phosphatase 167 U/L (45-117) H 12/11/16 07:45 Total Protein 6.3 g/dl (6.4-8.2) L 12/11/16 07:45 Albumin 2.8 g/dl (3.4-5.0) L 12/11/16 07:45 Urine Color Nneka 12/10/16 21:00 Urine Appearance Clear 12/10/16 21:00 Urine pH 5.0 (5.0-8.0) 12/10/16 21:00 Ur Specific [place] >= 1.030 (1.005-1.025) H 12/10/16 21:00 Urine Protein Negative (NEGATIVE) 12/10/16 21:00 Urine Glucose (UA) Negative (NEGATIVE) 12/10/16 21:00 Urine Ketones Negative (NEGATIVE) 12/10/16 21:00 Urine Blood Negative (NEGATIVE) 12/10/16 21:00 Urine Nitrite Negative (NEGATIVE) 12/10/16 21:00 Urine Bilirubin Negative (NEGATIVE) 12/10/16 21:00 Urine Urobilinogen 2.0 mg/dL (0.2-1.0) 12/10/16 21:00 Ur Leukocyte Esterase Negative (NEGATIVE) 12/10/16 21:00 RPR Titer Nonreactive (NONREACTIVE) 12/11/16 07:45 labs noted Assessment: 12/12/16 13:24 withdrawal sx. Plan: continue detox
--- NOTE | 2016-12-12 14:20 | CONSULT ---
[facility] Psychiatric Consult - Data Date of interview: 12/12/16 Admission source: [facility] Identifying data: Another admission to [facility] for this 51 y/o AA male seeking detox treatment for alcohol,marijuana and cocaine dependence.Patient is single without children,homeless,unemployed and supported on Public Assistance. Substance Abuse History: Discussed in detail with the patient in this interview.Mr Diro confirms this section of [facility] report : Smoking Cessation. Smoking history: Current every day smoker. Have you smoked in the past 12 months: Yes. Aproximately how many cigarettes per day: 10. Cigars Per Day: 0. Hx Chewing Tobacco Use: No. Initiated information on smoking cessation: Yes. 'Breaking Loose' booklet given: 12/10/16. - Substances Abused. Alcohol. Route: Oral. Frequency: Daily. Amount used: beer 1 1/2(6pack). Age of first use: 15. Date of Last Use: 12/10/16. Crack. Route: Smoking. Frequency: Daily. Amount used: $100.00. Age of first use: 25. Date of Last Use: . Marijuana/Hashish. Route: Smoking. Frequency: Daily. Amount used: 1 joint. Age of first use: 15. Date of Last Use: 12/08/16 Medical History: Hypertension. Psychiatric History: Patient denies history of psychiatric hospitalizations or psychiatric OPD care.No reported history of suicide attempts. Physical/Sexual Abuse/Trauma History: Patient denies. Additional Comment: Urine Drug Screen Results: THC-Marijuana, ACE-Cocaine, BZO- Benzodiazepines.Noted. Mental Status Exam - Mental Status Exam Alert and Oriented to: Time, Place, Person Cognitive Function: Good Patient Appearance: Well Groomed Mood: Withdrawn, Hopeful Affect: Appropriate, Normal Range Patient Behavior: Sedated (light sedation due to librium), Fatigued Speech Pattern: Clear Voice Loudness: Normal Thought Process: Intact, Goal Oriented Thought Disorder: Not Present Hallucinations: Denies Suicidal Ideation: Denies Homicidal Ideation: Denies Insight/Judgement: Poor Sleep: Poorly (requests benadryl at bedtime), Difficulty falling asleep Muscle strength/Tone: Normal Gait/Station: Normal Psychiatric Findings - Problem List ([place] 1, 2,3) (1) Alcohol dependence with uncomplicated withdrawal Current Visit: Yes Status: Acute (2) Cannabis dependence Current Visit: Yes Status: Acute (3) Cocaine dependence with withdrawal Current Visit: Yes Status: Acute (4) Nicotine dependence Current Visit: Yes Status: Acute Qualifiers: Nicotine product type: cigarettes Substance use status: uncomplicated Qualified Code(s): F17.210 - Nicotine dependence, cigarettes, uncomplicated (5) HTN (hypertension) Current Visit: Yes Status: Chronic Qualifiers: Hypertension type: essential hypertension Qualified Code(s): I10 - Essential (primary) hypertension (6) Insomnia Current Visit: Yes Status: Acute - Initial Treatment Plan Initial Treatment Plan: Psychoeducation.Detoxification.Insomnia is addressed with benadryl 50 mg po hs brn.Side effects/benefits discussed with the patient.He agrees with careplan.Observation.
[2016-12-12] MEDS: THIAMINE HCL 100 MG TABLET (FP) PO SCH (22:41)
[2016-12-12] MEDS: chlordiazePOXIDE 5 MG CAPSULE PO SCH (22:42)
[2016-12-12] MEDS: diphenhydrAMINE HCL 50 MG CAPSULE PO PRN (22:42)
[2016-12-13] MEDS: chlordiazePOXIDE 5 MG CAPSULE PO SCH ×3 (05:58→17:17)
[2016-12-13] MEDS: PRENATAL VITAMINS W/ FOLIC ACID TABLET (FP) PO SCH (09:44)
[2016-12-13] MEDS: HYDROCHLOROTHIAZIDE 25 MG TABLET (FP) PO SCH (09:44)
[2016-12-13] MEDS: NICOTINE 21 MG/24 HOURS TOPICAL PATCH TD SCH (10:15)
--- NOTE | 2016-12-13 11:46 | PN ---
S Progress Note (SOAP) Subjective: ANXIETY,IRRITABILITY,FATIGUE,INTERMITTENT SLEEP Objective: 12/13/16 11:45 Vital Signs Temperature 98.1 F 12/13/16 10:14 Pulse Rate 96 H 12/13/16 10:14 Respiratory Rate 20 12/13/16 10:14 Blood Pressure 133/96 12/13/16 10:14 O2 Sat by Pulse Oximetry (%) Laboratory Last Values WBC 5.7 K/mm3 (4.0-10.0) 12/11/16 07:45 RBC 4.45 M/mm3 (4.00-5.60) 12/11/16 07:45 Hgb 13.9 GM/dL (11.7-16.9) 12/11/16 07:45 Hct 40.4 % (35.4-49) 12/11/16 07:45 MCV 90.9 fl (80-96) 12/11/16 07:45 MCH 31.2 pg (25.7-33.7) 12/11/16 07:45 MCHC 34.3 g/dl (32.0-35.9) 12/11/16 07:45 RDW 13.9 % (11.9-15.9) 12/11/16 07:45 Plt Count 190 K/MM3 (134-434) 12/11/16 07:45 MPV 9.6 fl (7.5-11.1) 12/11/16 07:45 Sodium 140 mmol/L (136-145) 12/11/16 07:45 Potassium 4.0 mmol/L (3.5-5.1) 12/11/16 07:45 Chloride 107 mmol/L (98-107) 12/11/16 07:45 Carbon Dioxide 28 mmol/L (21-32) 12/11/16 07:45 Anion Gap 5 (8-16) L 12/11/16 07:45 BUN 16 mg/dL (7-18) 12/11/16 07:45 Creatinine 1.1 mg/dL (0.7-1.3) 12/11/16 07:45 Creat Clearance w eGFR > 60 (>60) 12/11/16 07:45 Random Glucose 88 mg/dL (74-106) 12/11/16 07:45 Calcium 8.4 mg/dL (8.5-10.1) L 12/11/16 07:45 Total Bilirubin 0.4 mg/dL (0.2-1.0) D 12/11/16 07:45 AST 90 U/L (15-37) H D 12/11/16 07:45 ALT 129 U/L (12-78) H D 12/11/16 07:45 Alkaline Phosphatase 167 U/L (45-117) H 12/11/16 07:45 Total Protein 6.3 g/dl (6.4-8.2) L 12/11/16 07:45 Albumin 2.8 g/dl (3.4-5.0) L 12/11/16 07:45 Urine Color Nneka 12/10/16 21:00 Urine Appearance Clear 12/10/16 21:00 Urine pH 5.0 (5.0-8.0) 12/10/16 21:[address] >= 1.030 (1.005-1.025) H 12/10/16 21:00 Urine Protein Negative (NEGATIVE) 12/10/16 21:00 Urine Glucose (UA) Negative (NEGATIVE) 12/10/16 21:00 Urine Ketones Negative (NEGATIVE) 12/10/16 21:00 Urine Blood Negative (NEGATIVE) 12/10/16 21:00 Urine Nitrite Negative (NEGATIVE) 12/10/16 21:00 Urine Bilirubin Negative (NEGATIVE) 12/10/16 21:00 Urine Urobilinogen 2.0 mg/dL (0.2-1.0) 12/10/16 21:00 Ur Leukocyte Esterase Negative (NEGATIVE) 12/10/16 21:00 RPR Titer Nonreactive (NONREACTIVE) 12/11/16 07:45 Assessment: 12/13/16 11:46 WITHDRAWAL SX Plan: CONTINUE DETOX
[2016-12-13] MEDS: MAG HYDROX/AL HYDROX/SIMETH 30 ML UNIT-DOSE CUP PO PRN (15:09)
[2016-12-13 17:37] LABS: ALBUMIN 3.2 g/dl (3.4-5.0); ANION GAP 4 (8-16); CALCIUM 8.9 mg/dL (8.5-10.1); CO2 32 mmol/L (21-32); CREATININE 1.1 mg/dL (0.7-1.3); GLUCOSE,RANDOM 108 mg/dL (74-106); SGOT/AST 135 U/L (15-37); SGPT/ALT 179 U/L (12-78)
[2016-12-13 17:40] LABS: ALK PHOS 188 U/L (45-117); BILIRUBIN,TOTAL 0.4 mg/dL (0.2-1.0)
[2016-12-13] MEDS: THIAMINE HCL 100 MG TABLET (FP) PO SCH (22:33)
[2016-12-13] MEDS: chlordiazePOXIDE HCL 10 MG CAPSULE PO SCH (22:33)
[2016-12-13] MEDS: diphenhydrAMINE HCL 50 MG CAPSULE PO PRN (22:33)
[2016-12-14] MEDS: chlordiazePOXIDE HCL 10 MG CAPSULE PO SCH (05:59)
[2016-12-14] MEDS: HYDROCHLOROTHIAZIDE 25 MG TABLET (FP) PO SCH (09:13)
[2016-12-14] MEDS: PRENATAL VITAMINS W/ FOLIC ACID TABLET (FP) PO SCH (09:13)
[2016-12-14] MEDS: NICOTINE 21 MG/24 HOURS TOPICAL PATCH TD SCH (09:13)
--- NOTE | 2016-12-14 09:20 | DS ---
[facility] Detox Discharge Summary Admission Date: 12/10/16 Discharge Date: 12/14/16 - History Present History: Alcohol Dependence, Cannabis Dependence, Cocaine Dependence Additional Comments: DETOX COMPLETED. ALERT O X 3. NAD. PT INSTRUCTED TO FOLLOW UP WITH HIS PCP AT [facility] FOR MEDICAL MANAGEMENT OF COMORBID CONDITIONS. Pertinent Past History: HTN - Physical Exam Results Vital Signs: Vital Signs Temperature 97.8 F 12/14/16 06:51 Pulse Rate 87 12/14/16 06:51 Respiratory Rate 18 12/14/16 06:51 Blood Pressure 130/93 12/14/16 06:51 O2 Sat by Pulse Oximetry (%) Pertinent Admission Physical Exam Findings: WITHDRAWAL SX Laboratory Tests 12/10/16 12/11/16 12/11/16 21:00 07:45 07:45 WBC 5.7 RBC 4.45 Hgb 13.9 Hct 40.4 MCV 90.9 MCH 31.2 MCHC 34.3 RDW 13.9 Plt Count 190 MPV 9.6 Sodium 140 Potassium 4.0 Chloride 107 Carbon Dioxide 28 Anion Gap 5 L BUN 16 Creatinine 1.1 Creat Clearance w eGFR > 60 Random Glucose 88 Calcium 8.4 L Total Bilirubin 0.4 D AST 90 H D ALT 129 H D Alkaline Phosphatase 167 H Total Protein 6.3 L Albumin 2.8 L Urine Color Nneka Urine Appearance Clear Urine pH 5.0 Ur Specific [place] >= 1.030 H Urine Protein Negative Urine Glucose (UA) Negative Urine Ketones Negative Urine Blood Negative Urine Nitrite Negative Urine Bilirubin Negative Urine Urobilinogen 2.0 Ur Leukocyte Esterase Negative RPR Titer 12/11/16 12/13/16 07:45 12:15 WBC RBC Hgb Hct MCV MCH MCHC RDW Plt Count MPV Sodium 138 Potassium 3.9 Chloride 102 Carbon Dioxide 32 Anion Gap 4 L BUN 17 Creatinine 1.1 Creat Clearance w eGFR > 60 Random Glucose 108 H D Calcium 8.9 Total Bilirubin 0.4 AST 135 H D ALT 179 H D Alkaline Phosphatase 188 H Total Protein 7.0 Albumin 3.2 L Urine Color Urine Appearance Urine pH Ur Specific [place] Urine Protein Urine Glucose (UA) Urine Ketones Urine Blood Urine Nitrite Urine Bilirubin Urine Urobilinogen Ur Leukocyte Esterase RPR Titer Nonreactive COPY OF LAB GIVEN TO PT TO FOLLOW UP WITH HIS PCP AT [facility] RE: ELEVATED LIVER ENZYMES MONITORING. - Treatment Hospital Course: Detox Protocol Followed, Detoxed Safely, Responded well, Discharged Condition Good, Rehab Referral Accepted Patient has Accepted a Rehab Referral to: [facility] - Medication Discharge Medications: Ambulatory Orders Hydrochlorothiazide [Hydrodiuril] 25 mg PO DAILY 12/10/16 - Diagnosis (1) Alcohol dependence with uncomplicated withdrawal Current Visit: Yes Status: Acute (2) Cannabis dependence Current Visit: Yes Status: Acute (3) Cocaine dependence with withdrawal Current Visit: Yes Status: Acute (4) Nicotine dependence Current Visit: Yes Status: Acute Qualifiers: Nicotine product type: cigarettes Substance use status: in withdrawal Qualified Code(s): F17.213 - Nicotine dependence, cigarettes, with withdrawal (5) HTN (hypertension) Current Visit: Yes Status: Chronic Qualifiers: Hypertension type: essential hypertension Qualified Code(s): I10 - Essential (primary) hypertension - AMA Did Patient Leave Against Medical Advice: No
[2016-12-14 09:29] VITALS: BP 144/98; PULSE 93; TEMP 96.7
[2016-12-14] MEDS: MAG HYDROX/AL HYDROX/SIMETH 30 ML UNIT-DOSE CUP PO PRN (10:58)
== END 2016-12-14 11:00 | disposition home or self-care (01) | DRG 774 ==
LOC: YASAS 15:28 → Y3N 17:25
PROVIDERS: ADMIT Internal Medicine; ATTEND Internal Medicine
PROC: HZ2ZZZZ Detoxification Services for Substance Abuse Treatment (ICD-10-PCS; principal; 2016-12-10)
DX: F10.230 Alcohol dependence with withdrawal, uncomplicated (principal); F14.23 Cocaine dependence with withdrawal; F12.20 Cannabis dependence, uncomplicated; F17.213 Nicotine dependence, cigarettes, with withdrawal; I10 Essential (primary) hypertension; G47.00 Insomnia, unspecified
CPT/HCPCS: 36415; 80053; 81003; 85027; 86593; 93005; 93010

== ENCOUNTER 2016-12-22 09:46 | Inpatient (IN) | payer OTHER ==
[2016-12-22 11:07] VITALS: BMI 31.3
--- NOTE | 2016-12-22 12:58 | HP ---
[facility] Rehab Assess/Revision - Admission History Admitted to Rehab from: [facility] [place] - Vital signs Vital Signs: Vital Signs Period Temp Pulse Resp BP Sys/[place] Pulse Ox Last 24 Hr 96.8 F 92 20 143/91 - Findings Detox History & Physical reviewed: Yes Concur with findings: Yes
[2016-12-22] MEDS ORDERED: NICOTINE POLACRILEX 4 MG GUM BUC PRN (13:02)
[2016-12-22] MEDS ORDERED: IBUPROFEN 400 MG TABLET (FP) PO PRN (13:02)
[2016-12-22] MEDS ORDERED: hydrOXYzine PAMOATE 50 MG CAPSULE (FP) PO PRN (13:02)
[2016-12-22] MEDS ORDERED: MAGNESIUM HYDROX 2400MG/30ML ORAL SUSPENSION 30 ML CUP PO PRN (13:02)
[2016-12-22] MEDS ORDERED: guaiFENesin/D-METHORPHAN HB 10 ML UNIT-DOSE CUPS PO PRN (13:02)
[2016-12-22] MEDS ORDERED: LOPERAMIDE HCL 2 MG CAPSULE PO PRN (13:02)
[2016-12-22] MEDS ORDERED: P-EPHED 60MG/TRIPROLIDI 2.5MG TABLET PO PRN (13:02)
[2016-12-22] MEDS ORDERED: ACETAMINOPHEN 325 MG TABLET (FP) PO PRN (13:02)
[2016-12-22] MEDS ORDERED: MENTHOL/PHENOL 1 EACH UD MM PRN (13:02)
[2016-12-22] MEDS ORDERED: MAGNESIUM CITRATE 300 ML BOTTLE PO PRN (13:02)
[2016-12-22] MEDS: HYDROCHLOROTHIAZIDE 25 MG TABLET (FP) PO SCH (15:37)
[2016-12-22 15:53] LABS: URINE APPEARANCE CLEAR; URINE BLOOD NEGATIVE (NEGATIVE); URINE COLOR AMBER; URINE GLUCOSE (UA) NEGATIVE (NEGATIVE); URINE KETONE NEGATIVE (NEGATIVE); URINE LEUK ESTERASE NEGATIVE (NEGATIVE); URINE NITRITE NEGATIVE (NEGATIVE); URINE PROTEIN NEGATIVE (NEGATIVE); URINE UROBILINOGEN 4.0 E.U/dl mg/dL (0.2-1.0)
[2016-12-22] MEDS: THIAMINE HCL 100 MG TABLET (FP) PO SCH (21:59)
--- NOTE | 2016-12-23 06:18 | HP ---
Psychiatrist Admission - Data Date of interview: 12/23/16 Admission source: [facility] Identifying data: This is one of the multiple [facility] admission for this 51 years old single Black male, unemployed on food stamp, homeless Medical History: Significant for HTN and history of orthosurgery for fracture right thumb due to fall while playing softball. Smokes 10 cigarettes daily Psychiatric History: Denies history of previous psychiatric treatment Physical/Sexual Abuse/Trauma History: Denies history of emotional, physical or sexual abuse as well as DV relationship Additional Comment: Reports history of multiple misdemeanor arrest. Denies being on probation at [facility] Vital Signs: Vital Signs - 24 hr 12/22/16 12/23/16 12/23/16 11:04 00:30 03:30 Temperature 96.8 F L Pulse Rate 92 H Respiratory 20 18 18 Rate Blood Pressure 143/91 Allergies/Adverse Reactions: Allergies Allergy/AdvReac Type Severity Reaction Status Date / Time No Known Allergies Allergy Verified 12/22/16 12:44 Date of last physical exam: 12/22/16 Concur with the findings of this exam: Yes - Substance Abuse/Tx History Hx Alcohol Use: Yes Hx Substance Use: Yes Substance Use Type: Alcohol (Started drinking alcohol at age 15, consumes 1.5x 6pk daily. Last drink on 12/10/16), Cocaine (Started smoking crack cocainr at age 25, consumes $100 worth daily. Last smoked on 12/10/16), Marijuana (Started smoking marijuana at age 15, consumes one joint daily. Last smoked on 12/08/16) Hx Substance Use Treatment: Yes (7 previous inpt detox & one inpt rehab @ [facility]) - Admission Criteria Previous failed treatment: Yes Poor recovery environment: Yes Comorbidities: Yes Lacks judgement: Yes Mental Status Exam - Mental Status Exam Alert and Oriented to: Time, Place, Person Cognitive Function: Fair Patient Appearance: Well Groomed Mood: Hopeful, Euthymic Patient Behavior: Cooperative Speech Pattern: Clear Voice Loudness: Normal Thought Process: Intact, Goal Oriented Thought Disorder: Not Present Hallucinations: Denies Suicidal Ideation: Denies Homicidal Ideation: Denies Insight/Judgement: Fair Sleep: Poorly Muscle strength/Tone: Normal Gait/Station: Normal Psychiatric Findings - Problem List ([address] 1, 2,3) (1) Alcohol dependence Current Visit: Yes Status: Acute (2) Cocaine dependence Current Visit: Yes Status: Acute (3) Cannabis dependence Current Visit: No Status: Acute (4) Nicotine dependence Current Visit: No Status: Acute Qualifiers: Nicotine product type: cigarettes Substance use status: in withdrawal Qualified Code(s): F17.213 - Nicotine dependence, cigarettes, with withdrawal (5) Substance-induced sleep disorder Current Visit: Yes Status: Acute (6) HTN (hypertension) Current Visit: No Status: Chronic Qualifiers: Hypertension type: essential hypertension Qualified Code(s): I10 - Essential (primary) hypertension - Initial Treatment Plan Initial Treatment Plan: 1) Start Belsomra 10 mg po HS prn for insomnia. 2) Monitor progress
--- NOTE | 2016-12-23 09:35 | EKG ---
Test Reason : Blood Pressure : / mmHG Vent. Rate : 078 BPM Atrial Rate : 078 BPM P-R Int : 160 ms QRS Dur : 088 ms QT Int : 420 ms P-R-T Axes : 054 040 045 degrees QTc Int : 478 ms NORMAL SINUS RHYTHM NORMAL ECG WHEN COMPARED WITH ECG OF 10-DEC-2016 19:08, NO SIGNIFICANT CHANGE WAS FOUND Confirmed by ABHILASH RALPH MD ([id number]) on 12/23/2016 9:35:18 AM Referred By: Confirmed By:ABHILASH RALPH MD
[2016-12-23] MEDS: HYDROCHLOROTHIAZIDE 25 MG TABLET (FP) PO SCH (10:32)
[2016-12-23] MEDS: PRENATAL VITAMINS W/ FOLIC ACID TABLET (FP) PO SCH (10:32)
[2016-12-23] MEDS: NICOTINE 21 MG/24 HOURS TOPICAL PATCH TD SCH (10:33)
[2016-12-23 11:29] LABS: HIV 1 & 2 AB NEGATIVE; HIV 1 AGp24 NEGATIVE
[2016-12-23] MEDS: THIAMINE HCL 100 MG TABLET (FP) PO SCH (21:35)
[2016-12-23] MEDS ORDERED: SUVOREXANT 10 MG TABLET PO PRN (22:00)
[2016-12-24] MEDS: HYDROCHLOROTHIAZIDE 25 MG TABLET (FP) PO SCH (10:06)
[2016-12-24] MEDS: PRENATAL VITAMINS W/ FOLIC ACID TABLET (FP) PO SCH (10:06)
[2016-12-24] MEDS: NICOTINE 21 MG/24 HOURS TOPICAL PATCH TD SCH (10:07)
[2016-12-24] MEDS: diphenhydrAMINE HCL 50 MG CAPSULE PO PRN (21:25)
[2016-12-24] MEDS: THIAMINE HCL 100 MG TABLET (FP) PO SCH (21:25)
[2016-12-25] MEDS: PRENATAL VITAMINS W/ FOLIC ACID TABLET (FP) PO SCH (10:14)
[2016-12-25] MEDS: NICOTINE 21 MG/24 HOURS TOPICAL PATCH TD SCH (10:15)
[2016-12-25] MEDS: HYDROCHLOROTHIAZIDE 25 MG TABLET (FP) PO SCH (10:15)
[2016-12-25] MEDS: diphenhydrAMINE HCL 50 MG CAPSULE PO PRN (21:07)
[2016-12-25] MEDS: THIAMINE HCL 100 MG TABLET (FP) PO SCH (21:07)
[2016-12-26] MEDS: HYDROCHLOROTHIAZIDE 25 MG TABLET (FP) PO SCH (10:24)
[2016-12-26] MEDS: PRENATAL VITAMINS W/ FOLIC ACID TABLET (FP) PO SCH (10:24)
[2016-12-26] MEDS: NICOTINE 21 MG/24 HOURS TOPICAL PATCH TD SCH (10:25)
[2016-12-26] MEDS: MAG HYDROX/AL HYDROX/SIMETH 30 ML UNIT-DOSE CUP PO PRN (14:03)
[2016-12-26] MEDS: diphenhydrAMINE HCL 50 MG CAPSULE PO PRN (21:19)
[2016-12-26] MEDS: THIAMINE HCL 100 MG TABLET (FP) PO SCH (21:19)
[2016-12-26] MEDS ORDERED: SUVOREXANT 10 MG TABLET PO PRN (22:00)
[2016-12-27] MEDS: HYDROCHLOROTHIAZIDE 25 MG TABLET (FP) PO SCH (09:40)
[2016-12-27] MEDS: PRENATAL VITAMINS W/ FOLIC ACID TABLET (FP) PO SCH (09:40)
[2016-12-27] MEDS: MAG HYDROX/AL HYDROX/SIMETH 30 ML UNIT-DOSE CUP PO PRN (19:54)
[2016-12-27] MEDS: THIAMINE HCL 100 MG TABLET (FP) PO SCH (22:02)
[2016-12-27] MEDS: diphenhydrAMINE HCL 50 MG CAPSULE PO PRN (22:02)
[2016-12-28] MEDS: PRENATAL VITAMINS W/ FOLIC ACID TABLET (FP) PO SCH (10:07)
[2016-12-28] MEDS: HYDROCHLOROTHIAZIDE 25 MG TABLET (FP) PO SCH (10:08)
[2016-12-28] MEDS: MAG HYDROX/AL HYDROX/SIMETH 30 ML UNIT-DOSE CUP PO PRN (14:33)
[2016-12-28] MEDS: THIAMINE HCL 100 MG TABLET (FP) PO SCH (21:26)
[2016-12-28] MEDS: diphenhydrAMINE HCL 50 MG CAPSULE PO PRN (21:26)
[2016-12-29] MEDS: PRENATAL VITAMINS W/ FOLIC ACID TABLET (FP) PO SCH (10:04)
[2016-12-29] MEDS: HYDROCHLOROTHIAZIDE 25 MG TABLET (FP) PO SCH (10:04)
--- NOTE | 2016-12-29 16:06 | PN ---
S Progress Note Note: Vital Signs - 24 hr 12/29/16 12/29/16 12/29/16 00:30 03:30 06:44 Temperature 98.3 F Pulse Rate 73 Respiratory 18 18 18 Rate Blood Pressure 132/86 we'll give dyazide instead of hctz & add norvasc
[2016-12-29] MEDS: amLODIPine BESYLATE 5 MG TABLET (FP) PO SCH (21:49)
[2016-12-29] MEDS: THIAMINE HCL 100 MG TABLET (FP) PO SCH (21:50)
[2016-12-30] MEDS: amLODIPine BESYLATE 5 MG TABLET (FP) PO SCH ×2 (10:31→21:12)
[2016-12-30] MEDS: TRIAMTERENE AND HCTZ - 37.5 MG/25 MG CAPSULE PO SCH (10:31)
[2016-12-30] MEDS: PRENATAL VITAMINS W/ FOLIC ACID TABLET (FP) PO SCH (10:31)
[2016-12-30] MEDS: THIAMINE HCL 100 MG TABLET (FP) PO SCH (21:11)
[2016-12-30] MEDS: diphenhydrAMINE HCL 50 MG CAPSULE PO PRN (21:13)
[2016-12-31] MEDS: TRIAMTERENE AND HCTZ - 37.5 MG/25 MG CAPSULE PO SCH (09:50)
[2016-12-31] MEDS: PRENATAL VITAMINS W/ FOLIC ACID TABLET (FP) PO SCH (09:50)
[2016-12-31] MEDS: amLODIPine BESYLATE 5 MG TABLET (FP) PO SCH ×2 (09:50→21:39)
[2016-12-31] MEDS: MAG HYDROX/AL HYDROX/SIMETH 30 ML UNIT-DOSE CUP PO PRN (19:52)
[2016-12-31] MEDS: THIAMINE HCL 100 MG TABLET (FP) PO SCH (21:39)
[2016-12-31] MEDS: diphenhydrAMINE HCL 50 MG CAPSULE PO PRN (21:39)
[2017-01-01] MEDS: amLODIPine BESYLATE 5 MG TABLET (FP) PO SCH ×2 (09:32→21:55)
[2017-01-01] MEDS: TRIAMTERENE AND HCTZ - 37.5 MG/25 MG CAPSULE PO SCH (09:32)
[2017-01-01] MEDS: PRENATAL VITAMINS W/ FOLIC ACID TABLET (FP) PO SCH (09:33)
[2017-01-01] MEDS: diphenhydrAMINE HCL 50 MG CAPSULE PO PRN (21:30)
[2017-01-01] MEDS: THIAMINE HCL 100 MG TABLET (FP) PO SCH (21:30)
[2017-01-02] MEDS: TRIAMTERENE AND HCTZ - 37.5 MG/25 MG CAPSULE PO SCH (09:58)
[2017-01-02] MEDS: amLODIPine BESYLATE 5 MG TABLET (FP) PO SCH ×2 (09:58→21:31)
[2017-01-02] MEDS: PRENATAL VITAMINS W/ FOLIC ACID TABLET (FP) PO SCH (09:58)
[2017-01-02] MEDS: THIAMINE HCL 100 MG TABLET (FP) PO SCH (21:31)
[2017-01-02] MEDS: diphenhydrAMINE HCL 50 MG CAPSULE PO PRN (21:31)
[2017-01-03 07:01] VITALS: TEMP 98.2
[2017-01-03] MEDS: TRIAMTERENE AND HCTZ - 37.5 MG/25 MG CAPSULE PO SCH (09:47)
[2017-01-03] MEDS: PRENATAL VITAMINS W/ FOLIC ACID TABLET (FP) PO SCH (09:47)
[2017-01-03] MEDS: amLODIPine BESYLATE 5 MG TABLET (FP) PO SCH ×2 (09:47→21:53)
[2017-01-03] MEDS: MAG HYDROX/AL HYDROX/SIMETH 30 ML UNIT-DOSE CUP PO PRN (19:45)
[2017-01-03] MEDS: THIAMINE HCL 100 MG TABLET (FP) PO SCH (21:53)
[2017-01-03] MEDS: diphenhydrAMINE HCL 50 MG CAPSULE PO PRN (21:54)
[2017-01-04] MEDS: TRIAMTERENE AND HCTZ - 37.5 MG/25 MG CAPSULE PO SCH (09:53)
[2017-01-04] MEDS: amLODIPine BESYLATE 5 MG TABLET (FP) PO SCH ×2 (09:53→22:06)
[2017-01-04] MEDS: PRENATAL VITAMINS W/ FOLIC ACID TABLET (FP) PO SCH (09:53)
[2017-01-04] MEDS: MAG HYDROX/AL HYDROX/SIMETH 30 ML UNIT-DOSE CUP PO PRN (09:54)
--- NOTE | 2017-01-04 15:12 | PN ---
Psychiatric Progress Note Vital Signs: Vital Signs Period Temp Pulse Resp BP Sys/[place]hen[place] Pulse Ox Last 24 Hr 92 18-18 116/75 Date of Session: 01/04/17 Chief Complaint:: Discharge visit HPI: Patient addressed Alcohol,Cocaine and Cannabis dependence comorbid with Substance induced mood disorder. ROS: HTN Current Medications: Active Medications Generic Name Dose Route Start Last Admin Trade Name Freq PRN Reason Stop Dose Admin Acetaminophen 650 mg 12/22/16 13:02 Tylenol - PO Q4H PRN PAIN Al Hydroxide/Mg Hydroxide 30 ml 12/22/16 13:02 01/04/17 09:54 Mylanta Oral Suspension - PO 30 ml Q6H PRN Administration DYSPEPSIA Amlodipine Besylate 5 mg 12/29/16 22:00 01/04/17 09:53 Norvasc - PO 5 mg BID MARTA Administration Diphenhydramine HCl 50 mg 12/22/16 13:02 01/03/17 21:54 Benadryl - PO 50 mg HSMR1 PRN Administration INSOMNIA Eucalyptus/Menthol/Phenol/Sorbitol 1 each 12/22/16 13:02 Cepastat Lozenge - MM Q4H PRN SORE THROAT Guaifenesin 10 ml 12/22/16 13:02 Robitussin Dm - PO Q6H PRN COUGH Hydroxyzine Pamoate 50 mg 12/22/16 13:02 Vistaril - PO Q4H PRN AGITATION Ibuprofen 400 mg 12/22/16 13:02 Motrin - PO Q6H PRN SEVERE PAIN Loperamide HCl 4 mg 12/22/16 13:02 Imodium - PO Q6H PRN DIARRHEA Magnesium Citrate 300 ml 12/22/16 13:02 Citroma - PO Q48H PRN CONSTIPATION Magnesium Hydroxide 30 ml 12/22/16 13:02 Milk Of Magnesia - PO DAILY PRN CONSTIPATION Nicotine Polacrilex 4 mg 12/22/16 13:02 Nicorette Gum - BUC Q2H PRN NICOTINE REPLACEMENT RX Multivit/Folic Acid/Iron 1 tab 12/23/16 10:00 01/04/17 09:53 Vitamins (Sjr) - PO 1 tab DAILY MARTA Administration Pseudoephedrine/Triprolidine 1 combo 12/22/16 13:02 Actifed - PO TID PRN NASAL CONGESTION Thiamine HCl 100 mg 12/22/16 22:00 01/03/17 21:53 Vitamin B1 - PO 100 mg HS MARTA Administration Triamterene/HCTZ 1 cap 12/30/16 10:00 01/04/17 09:53 Dyazide 25/37.5mg PO 1 cap DAILY MARTA Administration Current Side Effect: No Lab tests ordered: No Lab tests reviewed: Yes Provider note:: Patient will complete this program tomorrow 01/05/17.He has met his treatment goals and will continue to address his issues on outpatient [facility] program in [facility].Patient reports finding Vistaril 50 mg po daily prn helps him to cope with anxiety.Scripts for 30 days provided. Patient identifies areas of difficulties and ways,supports and coping skills he can utilize to maintain recovery. Patient is stable for discharge tomorrow . Total face to face time:: 30 Mental Status Exam - Mental Status Exam Alert and Oriented to: Time, Place, Person Cognitive Function: Grossly Intact Patient Appearance: Well Groomed Mood: Euthymic Affect: Mood Congruent Patient Behavior: Cooperative Speech Pattern: Clear Voice Loudness: Moderately Soft/Quiet Thought Process: Goal Oriented Hallucinations: Denies Suicidal Ideation: Denies Homicidal Ideation: Denies Insight/Judgement: Fair Sleep: Fair Appetite: Good Muscle strength/Tone: Normal Gait/Station: Normal Psychiatric Treatment Plan - Problem List (1) Alcohol dependence Current Visit: Yes (2) Cocaine dependence Current Visit: Yes (3) Substance-induced sleep disorder Current Visit: Yes (4) Cannabis dependence Current Visit: Yes (5) Nicotine dependence Current Visit: Yes Qualifiers: Nicotine product type: cigarettes Substance use status: in withdrawal Qualified Code(s): F17.213 - Nicotine dependence, cigarettes, with withdrawal (6) HTN (hypertension) Current Visit: Yes Qualifiers: Hypertension type: essential hypertension Qualified Code(s): I10 - Essential (primary) hypertension
[2017-01-04] MEDS: diphenhydrAMINE HCL 50 MG CAPSULE PO PRN (22:06)
[2017-01-04] MEDS: THIAMINE HCL 100 MG TABLET (FP) PO SCH (22:06)
[2017-01-05 06:46] VITALS: BP 101/65; PULSE 76
[2017-01-05] MEDS: amLODIPine BESYLATE 5 MG TABLET (FP) PO SCH (09:01)
[2017-01-05] MEDS: PRENATAL VITAMINS W/ FOLIC ACID TABLET (FP) PO SCH (09:01)
[2017-01-05] MEDS: TRIAMTERENE AND HCTZ - 37.5 MG/25 MG CAPSULE PO SCH (09:01)
== END 2017-01-05 09:40 | disposition home or self-care (01) | DRG 772 ==
LOC: YASAS 09:46 → Y3W 13:03
PROVIDERS: ADMIT Psychiatry & Neurology Psychiatry; ATTEND Psychiatry & Neurology Psychiatry
PROC: HZ42ZZZ Group Counseling for Substance Abuse Treatment, Cognitive-Behavioral (ICD-10-PCS; principal; 2017-01-05)
DX: F10.20 Alcohol dependence, uncomplicated (principal); F14.20 Cocaine dependence, uncomplicated; F12.20 Cannabis dependence, uncomplicated; F17.213 Nicotine dependence, cigarettes, with withdrawal; F19.282 Other psychoactive substance dependence with psychoactive substance-induced sleep disorder; I10 Essential (primary) hypertension
CPT/HCPCS: 36415; 81003; 86803; 87389; 93005; 93010

== ENCOUNTER 2017-02-13 11:47 | Inpatient (IN) | payer OTHER ==
[2017-02-13 13:08] VITALS: BMI 32.2
--- NOTE | 2017-02-13 14:01 | HP ---
CIWA Score - CIWA Score Nausea/Vomitin-No Nausea/No Vomiting Muscle Tremors: 4-Moderate,w/Arms Extend Anxiety: 3 Agitation: 4-Moderately Restless Paroxysmal Sweats: 3 Orientation: 0-Oriented Tacttile Disturbances: 0-None Auditory Disturbances: 0-None Visual Disturbances: 0-None Headache: 1-Very Mild CIWA-Ar Total Score: 15 Admission ROS BHS - HPI Chief Complaint: It is finally taking a toll and need the help. Allergies/Adverse Reactions: Allergies Allergy/AdvReac Type Severity Reaction Status Date / Time No Known Allergies Allergy Verified 02/13/17 13:41 History of Present Illness: pt is a 51yr old male with a history of alcohol dependence seeking detox for treatment. Exam Limitations: No Limitations - Ebola screening Have you traveled outside of the country in the last 21 days: No Have you had contact with anyone from an Ebola affected area: No Have you been sick,other than usual withdrawal symptoms: No Do you have a fever: No - Review of Systems Constitutional: Diaphoresis, Night Sweats, Changes in sleep EENT: reports: Blurred Vision Respiratory: reports: No Symptoms reported Cardiac: reports: No Symptoms Reported GI: reports: Poor Appetite, Poor Fluid Intake : reports: No Symptoms Reported Musculoskeletal: reports: Back Pain, Joint Pain, Muscle Pain Integumentary: reports: Flushing, Sweating Neuro: reports: Headache, Tingling, Tremors Endocrine: reports: Excessive Sweating, Flushing, Intolerance to Cold, Intolerance to Heat Hematology: reports: No Symptoms Reported Psychiatric: reports: Judgement Intact, Mood/Affect Appropiate, Orientated x3, Agitated, Anxious Other Systems: Reviewed and Negative Patient History - Patient Medical History Hx Anemia: No Hx Asthma: No Hx Chronic Obstructive Pulmonary Disease (COPD): No Hx Cancer: No Hx Cardiac Disorders: No Hx Congestive Heart Failure: No Hx Hypertension: Yes Hx Hypercholesterolemia: No Hx Pacemaker: No HX Cerebrovascular Accident: No Hx Seizures: No Hx Dementia: No Hx Diabetes: No Hx Gastrointestinal Disorders: No Hx Liver Disease: No Hx Genitourinary Disorders: No Hx Sexually Transmitted Disorders: No Hx Renal Disease (ESRD): No Hx Thyroid Disease: No Hx Human Immunodeficiency Virus (HIV): No Hx Hepatitis C: No Hx Depression: Yes Hx Suicide Attempt: No (denies) Hx Bipolar Disorder: No Hx Schizophrenia: No - Patient Surgical History Past Surgical History: Yes Hx Neurologic Surgery: No Hx Cataract Extraction: No Hx Cardiac Surgery: No Hx Lung Surgery: No Hx Breast Surgery: No Hx Breast Biopsy: No Hx Abdominal Surgery: No Hx Appendectomy: No Hx Cholecystectomy: No Hx Genitourinary Surgery: No Hx Section: No Hx Orthopedic Surgery: Yes (RIGHT THUMB DUE TO FX FROM PLAYING BALL) Anesthesia Reaction: No - PPD History Previous Implant?: Yes Documented Results: Negative w/proof Implanted On Prior [facility] Admission?: Yes Date: 09/11/16 Results: 0 mm PPD to be Administered?: No - Reproductive History Patient is a Female of Child Bearing Age (11 -55 yrs old): No - Smoking Cessation Smoking history: Current every day smoker Have you smoked in the past 12 months: Yes Aproximately how many cigarettes per day: 10 Cigars Per Day: 0 Hx Chewing Tobacco Use: No Initiated information on smoking cessation: Yes 'Breaking Loose' booklet given: 02/13/17 - Substance & Tx. History Hx Alcohol Use: Yes Hx Substance Use: No Substance Use Type: Alcohol Hx Substance Use Treatment: Yes - Substances Abused Crack Route: Smoking Frequency: Daily Amount used: $60-100 Age of first use: 26 Date of Last Use: 02/13/17 Alcohol-beer Route: Oral Frequency: Daily Amount used: 2-3 (40 oz.) Age of first use: 15 Date of Last Use: 02/13/17 Family Disease History - Family Disease History Family Disease History: Diabetes: Father (), Heart Disease: Father, CA: Mother () Admission Physical Exam S - Vital Signs Vital Signs: Vital Signs - 24 hr 02/13/17 13:02 Temperature 98 F Pulse Rate 86 Respiratory 20 Rate Blood Pressure 138/77 - Physical General Appearance: Yes: Appropriately Dressed, Moderate Distress, Tremorous, Irritable, Sweating, Anxious HEENTM: Yes: Hearing grossly Normal, Normal Voice Respiratory: Yes: Lungs Clear, Normal Breath Sounds, No Respiratory Distress Neck: Yes: No masses,lesions,Nodules Breast: Yes: Within Normal Limits Cardiology: Yes: Regular Rhythm, Regular Rate, S1, S2 Abdominal: Yes: Normal Bowel Sounds, Non Tender, Soft Genitourinary: Yes: Within Normal Limits Back: Yes: Normal Inspection Musculoskeletal: Yes: full range of Motion, Back pain Extremities: Yes: Normal Capillary Refill, Normal Inspection, Non-Tender, Tremors 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: Yes: Fully Oriented, Alert, Normal Response Integumentary: Yes: Normal Color, Diaphoresis Lymphatic: Yes: Within Normal Limits - Diagnostic (1) Alcohol dependence with uncomplicated withdrawal Current Visit: Yes Status: Chronic (2) Cannabis dependence Current Visit: Yes Status: Chronic (3) Cocaine dependence Current Visit: Yes Status: Chronic Qualifiers: Substance use status: uncomplicated Qualified Code(s): F14.20 - Cocaine dependence, uncomplicated; F14.20 - Cocaine dependence, uncomplicated; F14.20 - Cocaine dependence, uncomplicated (4) Nicotine dependence Current Visit: Yes Status: Chronic Qualifiers: Nicotine product type: cigarettes Substance use status: uncomplicated Qualified Code(s): F17.210 - Nicotine dependence, cigarettes, uncomplicated; F17.210 - Nicotine dependence, cigarettes, uncomplicated (5) HTN (hypertension) Current Visit: Yes Status: Chronic Qualifiers: Hypertension type: essential hypertension Cleared for Admission [facility] - Detox or Rehab [facility] Level of Care: Medically Managed Detox Regimen/Protocol: Librium [facility] Breath Alcohol Content Breath Alcohol Content: 0.017 Urine Drug Screen - Results Drug Screen Negative: No Urine Drug Screen Results: ACE-Cocaine
[2017-02-13] MEDS ORDERED: LOPERAMIDE HCL 2 MG CAPSULE PO PRN (14:02)
[2017-02-13] MEDS ORDERED: MAG HYDROX/AL HYDROX/SIMETH 30 ML UNIT-DOSE CUP PO PRN (14:02)
[2017-02-13] MEDS ORDERED: MAGNESIUM CITRATE 300 ML BOTTLE PO PRN (14:02)
[2017-02-13] MEDS ORDERED: MAGNESIUM HYDROX 2400MG/30ML ORAL SUSPENSION 30 ML CUP PO PRN (14:02)
[2017-02-13] MEDS ORDERED: IBUPROFEN 400 MG TABLET (FP) PO PRN (14:02)
[2017-02-13] MEDS ORDERED: chlordiazePOXIDE HCL 25 MG CAPSULE PO PRN (14:02)
[2017-02-13] MEDS ORDERED: MENTHOL/PHENOL 1 EACH UD MM PRN (14:02)
[2017-02-13] MEDS ORDERED: NICOTINE POLACRILEX 4 MG GUM BC PRN (14:02)
[2017-02-13] MEDS ORDERED: chlordiazePOXIDE HCL 25 MG CAPSULE PO ONE (15:53)
[2017-02-13] MEDS: chlordiazePOXIDE HCL 25 MG CAPSULE PO SCH ×2 (16:43→22:19)
[2017-02-13 17:13] LABS: MCH 31.7 pg (25.7-33.7); MEAN CELL VOLUME 90.5 fl (80-96); PLATELET COUNT 223 K/MM3 (134-434); RDW 13.8 % (11.9-15.9); WHITE BLOOD COUNT 6.4 K/mm3 (4.0-10.0)
[2017-02-13 17:17] LABS: ALBUMIN 3.2 g/dl (3.4-5.0); ALK PHOS 170 U/L (45-117); ANION GAP 10 (8-16); BILIRUBIN,TOTAL 0.4 mg/dL (0.2-1.0); CALCIUM 8.8 mg/dL (8.5-10.1); CO2 25 mmol/L (21-32); CREATININE 1.2 mg/dL (0.7-1.3); GLUCOSE,RANDOM 121 mg/dL (74-106); SGOT/AST 88 U/L (15-37); SGPT/ALT 123 U/L (12-78); TOT PROT 6.7 g/dl (6.4-8.2)
[2017-02-13 18:50] LABS: URINE APPEARANCE CLEAR; URINE BILIRUBIN NEGATIVE (NEGATIVE); URINE BLOOD NEGATIVE (NEGATIVE); URINE COLOR YELLOW; URINE GLUCOSE (UA) NEGATIVE (NEGATIVE); URINE KETONE NEGATIVE (NEGATIVE); URINE LEUK ESTERASE NEGATIVE (NEGATIVE); URINE NITRITE NEGATIVE (NEGATIVE); URINE PROTEIN NEGATIVE (NEGATIVE)
[2017-02-13] MEDS: THIAMINE HCL 100 MG TABLET (FP) PO SCH (22:19)
[2017-02-14] MEDS: chlordiazePOXIDE HCL 25 MG CAPSULE PO SCH ×4 (05:35→22:10)
--- NOTE | 2017-02-14 09:55 | EKG ---
Test Reason : Blood Pressure : / mmHG Vent. Rate : 082 BPM Atrial Rate : 082 BPM P-R Int : 158 ms QRS Dur : 090 ms QT Int : 400 ms P-R-T Axes : 054 048 042 degrees QTc Int : 467 ms NORMAL SINUS RHYTHM NORMAL ECG WHEN COMPARED WITH ECG OF 22-DEC-2016 22:11, NO SIGNIFICANT CHANGE WAS FOUND Confirmed by MARIS CHAVEZ MD ([id number]) on 02/14/2017 9:54:30 AM Referred By: Confirmed By:MARIS CHAVEZ MD
--- NOTE | 2017-02-14 10:42 | PN ---
S CIWA - CIWA Score Nausea/Vomitin Muscle Tremors: 3 Anxiety: 3 Agitation: 3 Paroxysmal Sweats: 1-Minimal Palms Moist Orientation: 0-Oriented Tacttile Disturbances: 1-Very Mild Itch/Numbness Auditory Disturbances: 1-Very Mild Visual Disturbances: 0-None Headache: 2-Mild CIWA-Ar Total Score: 17 BHS Progress Note (SOAP) Subjective: ALERT,IRRITABLE,ANXIOUS,INTERRUPTED SLEEP,TREMOR Objective: 02/14/17 10:39 Vital Signs Temperature 99.5 F 02/14/17 07:30 Pulse Rate 96 H 02/14/17 06:00 Respiratory Rate 18 02/14/17 06:00 Blood Pressure 125/81 02/14/17 06:00 O2 Sat by Pulse Oximetry (%) Laboratory Last Values WBC 6.4 K/mm3 (4.0-10.0) 02/13/17 14:00 RBC 4.58 M/mm3 (4.00-5.60) 02/13/17 14:00 Hgb 14.5 GM/dL (11.7-16.9) 02/13/17 14:00 Hct 41.4 % (35.4-49) 02/13/17 14:00 MCV 90.5 fl (80-96) 02/13/17 14:00 MCH 31.7 pg (25.7-33.7) 02/13/17 14:00 MCHC 35.0 g/dl (32.0-35.9) 02/13/17 14:00 RDW 13.8 % (11.9-15.9) 02/13/17 14:00 Plt Count 223 K/MM3 (134-434) 02/13/17 14:00 MPV 10.0 fl (7.5-11.1) 02/13/17 14:00 Sodium 140 mmol/L (136-145) 02/13/17 14:00 Potassium 4.0 mmol/L (3.5-5.1) 02/13/17 14:00 Chloride 105 mmol/L (98-107) 02/13/17 14:00 Carbon Dioxide 25 mmol/L (21-32) D 02/13/17 14:00 Anion Gap 10 (8-16) 02/13/17 14:00 BUN 13 mg/dL (7-18) D 02/13/17 14:00 Creatinine 1.2 mg/dL (0.7-1.3) 02/13/17 14:00 Creat Clearance w eGFR > 60 (>60) 02/13/17 14:00 Random Glucose 121 mg/dL (74-106) H 02/13/17 14:00 Calcium 8.8 mg/dL (8.5-10.1) 02/13/17 14:00 Total Bilirubin 0.4 mg/dL (0.2-1.0) 02/13/17 14:00 AST 88 U/L (15-37) H D 02/13/17 14:00 ALT 123 U/L (12-78) H D 02/13/17 14:00 Alkaline Phosphatase 170 U/L (45-117) H 02/13/17 14:00 Total Protein 6.7 g/dl (6.4-8.2) 02/13/17 14:00 Albumin 3.2 g/dl (3.4-5.0) L 02/13/17 14:00 Urine Color Yellow 02/13/17 17:45 Urine Appearance Clear 02/13/17 17:45 Urine pH 5.0 (5.0-8.0) 02/13/17 17:45 Ur Specific [place] 1.020 (1.005-1.025) 02/13/17 17:45 Urine Protein Negative (NEGATIVE) 02/13/17 17:45 Urine Glucose (UA) Negative (NEGATIVE) 02/13/17 17:45 Urine Ketones Negative (NEGATIVE) 02/13/17 17:45 Urine Blood Negative (NEGATIVE) 02/13/17 17:45 Urine Nitrite Negative (NEGATIVE) 02/13/17 17:45 Urine Bilirubin Negative (NEGATIVE) 02/13/17 17:45 Urine Urobilinogen 2.0 mg/dL (0.2-1.0) 02/13/17 17:45 RPR Titer Nonreactive (NONREACTIVE) 02/13/17 14:00 Assessment: 02/14/17 10:40 WITHDRAWAL SYMPTOM Plan: CONTINUE DETOX,D/C TYLENOL FOR ELEVATION OF AST,ALT,REPEAT CMP,INR IN AM
[2017-02-14] MEDS: NICOTINE 21 MG/24 HOURS TOPICAL PATCH TD SCH (10:45)
[2017-02-14] MEDS: hydrOXYzine PAMOATE 50 MG CAPSULE (FP) PO PRN (10:45)
[2017-02-14] MEDS: HYDROCHLOROTHIAZIDE 25 MG TABLET (FP) PO SCH (10:45)
[2017-02-14] MEDS: PRENATAL VITAMINS W/ FOLIC ACID TABLET (FP) PO SCH (10:45)
--- NOTE | 2017-02-14 15:48 | CONSULT ---
[facility] Psychiatric Consult - Data Date of interview: 02/14/17 Admission source: [facility] Identifying data: Readmission to [facility] for this 51 y/o AA male seeking detox treatment for alcohol,marijuana and cocaine dependence.Patient is single without children,homeless,unemployed and supported on Public Assistance. Substance Abuse History: Discussed with patient in this session.Confirmed [facility] report. Smoking Cessation. Smoking history: Current every day smoker. Have you smoked in the past 12 months: Yes. Aproximately how many cigarettes per day : 10. Cigars Per Day: 0. Hx Chewing Tobacco Use: No. Initiated information on smoking cessation: Yes. 'Breaking Loose' booklet given: 02/13/17. - Substance & Tx. History. Hx Alcohol Use: Yes. Hx Substance Use: No. Substance Use Type: Alcohol. Hx Substance Use Treatment: Yes. - Substances Abused. Crack. Route: Smoking. Frequency: Daily. Amount used: $60-100. Age of first use: 26. Date of Last Use: 02/13/17. Alcohol-beer. Route: Oral. Frequency: Daily. Amount used: 2-3 (40 oz.). Age of first use: 15. Date of Last Use: 02/13/17 Medical History: Hypertension and a history of orthosurgery for fracture of right thumb. Psychiatric History: No reported history of psychiatric hospitalizations or psychiatric OPD care.Mr Dior denies history of suicide attempts. Physical/Sexual Abuse/Trauma History: No history of abuse. Additional Comment: Urine Drug Screen Results: ACE-Cocaine.Noted. Mental Status Exam - Mental Status Exam Alert and Oriented to: Time, Place, Person Cognitive Function: Good Patient Appearance: Well Groomed Mood: Hopeful, Euthymic Affect: Normal Range Patient Behavior: Appropriate, Cooperative Speech Pattern: Clear Voice Loudness: Normal Thought Process: Intact, Goal Oriented Thought Disorder: Not Present Hallucinations: Denies Suicidal Ideation: Denies Homicidal Ideation: Denies Insight/Judgement: Poor Sleep: Poorly, Difficulty falling asleep (wants ambien) Appetite: Good Muscle strength/Tone: Normal Gait/Station: Normal Psychiatric Findings - Problem List ([place] 1, 2,3) (1) Alcohol dependence with uncomplicated withdrawal Current Visit: Yes Status: Acute (2) Cocaine dependence Current Visit: Yes Status: Acute Qualifiers: Substance use status: uncomplicated Qualified Code(s): F14.20 - Cocaine dependence, uncomplicated; F14.20 - Cocaine dependence, uncomplicated; F14.20 - Cocaine dependence, uncomplicated (3) Nicotine dependence Current Visit: Yes Status: Acute Qualifiers: Nicotine product type: cigarettes Substance use status: uncomplicated Qualified Code(s): F17.210 - Nicotine dependence, cigarettes, uncomplicated; F17.210 - Nicotine dependence, cigarettes, uncomplicated (4) HTN (hypertension) Current Visit: Yes Status: Chronic Qualifiers: Hypertension type: essential hypertension Qualified Code(s): I10 - Essential (primary) hypertension; I10 - Essential (primary) hypertension; I10 - Essential (primary) hypertension (5) Insomnia Current Visit: Yes Status: Acute - Initial Treatment Plan Initial Treatment Plan: Psychoeducation.Detoxification.Ambien 10 mg po hs.Patient is made aware of risk for parasomnias.Agrees with plan.Observation.
[2017-02-14] MEDS: THIAMINE HCL 100 MG TABLET (FP) PO SCH (22:10)
[2017-02-14] MEDS: ZOLPIDEM TARTRATE 10 MG TABLET (PARK CARE ONLY) PO PRN (22:10)
[2017-02-15] MEDS: chlordiazePOXIDE HCL 25 MG CAPSULE PO SCH ×2 (05:58→10:32)
[2017-02-15 10:01] LABS: ALK PHOS 150 U/L (45-117); ANION GAP 5 (8-16); BILIRUBIN,TOTAL 0.4 mg/dL (0.2-1.0); CALCIUM 8.7 mg/dL (8.5-10.1); CO2 30 mmol/L (21-32); CREATININE 1.1 mg/dL (0.7-1.3); GLUCOSE,RANDOM 120 mg/dL (74-106); SGOT/AST 82 U/L (15-37); SGPT/ALT 126 U/L (12-78)
[2017-02-15 10:12] LABS: INR 1.33 (0.82-1.09); PROTHROMBIN TIME (PATIENT) 14.7 SEC (9.98-11.88)
[2017-02-15] MEDS: PRENATAL VITAMINS W/ FOLIC ACID TABLET (FP) PO SCH (10:32)
[2017-02-15] MEDS: HYDROCHLOROTHIAZIDE 25 MG TABLET (FP) PO SCH (10:32)
[2017-02-15] MEDS: hydrOXYzine PAMOATE 50 MG CAPSULE (FP) PO PRN (10:32)
[2017-02-15] MEDS: NICOTINE 21 MG/24 HOURS TOPICAL PATCH TD SCH (10:33)
--- NOTE | 2017-02-15 11:39 | PN ---
S CIWA - CIWA Score Nausea/Vomitin Muscle Tremors: 3 Anxiety: 2 Agitation: 2 Paroxysmal Sweats: 1-Minimal Palms Moist Orientation: 0-Oriented Tacttile Disturbances: 1-Very Mild Itch/Numbness Auditory Disturbances: 1-Very Mild Visual Disturbances: 0-None Headache: 2-Mild CIWA-Ar Total Score: 15 BHS Progress Note (SOAP) Subjective: alert,irritable,anxious,interrupted sleep,tremor,coughing greenish mucous Objective: 02/15/17 11:37 Vital Signs Temperature 100.0 F H 02/15/17 10:17 Pulse Rate 110 H 02/15/17 10:17 Respiratory Rate 18 02/15/17 10:17 Blood Pressure 130/96 02/15/17 10:17 O2 Sat by Pulse Oximetry (%) Assessment: 02/15/17 11:38 lung clear,bronchitis withdrawal symptom Plan: continue detox,amoxicillin 500 mgs po tid for 7 days
[2017-02-15] MEDS: chlordiazePOXIDE 5 MG CAPSULE PO SCH ×2 (17:50→22:22)
[2017-02-15] MEDS: THIAMINE HCL 100 MG TABLET (FP) PO SCH (22:22)
[2017-02-15] MEDS: ZOLPIDEM TARTRATE 10 MG TABLET (PARK CARE ONLY) PO PRN (22:22)
[2017-02-16] MEDS: chlordiazePOXIDE 5 MG CAPSULE PO SCH ×2 (05:40→10:59)
[2017-02-16] MEDS: HYDROCHLOROTHIAZIDE 25 MG TABLET (FP) PO SCH (10:59)
[2017-02-16] MEDS: PRENATAL VITAMINS W/ FOLIC ACID TABLET (FP) PO SCH (10:59)
[2017-02-16] MEDS: NICOTINE 21 MG/24 HOURS TOPICAL PATCH TD SCH (11:00)
--- NOTE | 2017-02-16 12:43 | PN ---
S Progress Note (SOAP) Subjective: ALERT,IRRITABLE,ANXIOUS,INTERRUPTED SLEEP Objective: 02/16/17 12:42 Vital Signs Temperature 98.2 F 02/16/17 10:45 Pulse Rate 107 H 02/16/17 10:45 Respiratory Rate 18 02/16/17 10:45 Blood Pressure 113/80 02/16/17 10:45 O2 Sat by Pulse Oximetry (%) Assessment: 02/16/17 12:42 WITHDRAWAL SYMPTOM Plan: CONTINUE DETOX,DISCHARGE IN AM
[2017-02-16] MEDS: chlordiazePOXIDE HCL 10 MG CAPSULE PO SCH ×2 (19:18→22:18)
[2017-02-16] MEDS: ZOLPIDEM TARTRATE 10 MG TABLET (PARK CARE ONLY) PO PRN (22:17)
[2017-02-16] MEDS: THIAMINE HCL 100 MG TABLET (FP) PO SCH (22:18)
[2017-02-17] MEDS: chlordiazePOXIDE HCL 10 MG CAPSULE PO SCH (06:22)
--- NOTE | 2017-02-17 09:04 | DS ---
[facility] Detox Discharge Summary Admission Date: 02/13/17 Discharge Date: 02/17/17 - History Present History: Alcohol Dependence, Cannabis Dependence, Cocaine Dependence Additional Comments: follow up with after care program as arrangement Pertinent Past History: hypertension nicotine dependence - Physical Exam Results Vital Signs: Vital Signs Temperature 97.7 F 02/17/17 07:51 Pulse Rate 88 02/17/17 07:51 Respiratory Rate 18 02/17/17 07:51 Blood Pressure 113/61 02/17/17 07:51 O2 Sat by Pulse Oximetry (%) Pertinent Admission Physical Exam Findings: withdrawal symptom - Treatment Hospital Course: Detox Protocol Followed, Detoxed Safely, Responded well, Discharged Condition Good, Rehab Referral Accepted Patient has Accepted a Rehab Referral to: [facility] - Medication Discharge Medications: Ambulatory Orders Hydrochlorothiazide [Hctz -] 25 mg PO DAILY 02/13/17 - Diagnosis (1) Alcohol dependence with uncomplicated withdrawal Current Visit: Yes Status: Acute (2) Cocaine dependence Current Visit: Yes Status: Acute Qualifiers: Substance use status: uncomplicated Qualified Code(s): F14.20 - Cocaine dependence, uncomplicated; F14.20 - Cocaine dependence, uncomplicated; F14.20 - Cocaine dependence, uncomplicated (3) Cannabis dependence Current Visit: Yes Status: Chronic (4) HTN (hypertension) Current Visit: Yes Status: Chronic Qualifiers: Hypertension type: essential hypertension Qualified Code(s): I10 - Essential (primary) hypertension; I10 - Essential (primary) hypertension; I10 - Essential (primary) hypertension (5) Acute bronchitis Current Visit: Yes Status: Acute - AMA Did Patient Leave Against Medical Advice: No
[2017-02-17] MEDS: HYDROCHLOROTHIAZIDE 25 MG TABLET (FP) PO SCH (09:41)
[2017-02-17] MEDS: PRENATAL VITAMINS W/ FOLIC ACID TABLET (FP) PO SCH (09:41)
[2017-02-17 10:35] VITALS: BP 112/83; PULSE 100; TEMP 97.9
== END 2017-02-17 09:50 | disposition home or self-care (01) | DRG 774 ==
LOC: YASAS 11:47 → Y6N 15:26
PROVIDERS: ADMIT Internal Medicine; ATTEND Internal Medicine
PROC: HZ2ZZZZ Detoxification Services for Substance Abuse Treatment (ICD-10-PCS; principal; 2017-02-13)
DX: F10.230 Alcohol dependence with withdrawal, uncomplicated (principal); F14.20 Cocaine dependence, uncomplicated; F12.20 Cannabis dependence, uncomplicated; F17.210 Nicotine dependence, cigarettes, uncomplicated; J20.9 Acute bronchitis, unspecified; I10 Essential (primary) hypertension; G47.00 Insomnia, unspecified; Z59.0 Homelessness
CPT/HCPCS: 36415; 80053; 81003; 85027; 85610; 86593; 93005; 93010

== ENCOUNTER 2018-09-04 08:31 | Inpatient (IN) | payer OTHER ==
[2018-09-04 08:46] VITALS: BMI 32.8
--- NOTE | 2018-09-04 09:06 | HP ---
CIWA Score - Admission Criteria [facility] Guidelines: Admission for Medically Managed Detox: Requires at least one of the followin. CIWA greater than 12 2. Seizures within the past 24 hours 3. Delirium tremens within the past 24 hours 4. Hallucinations within the past 24 hours 5. Acute intervention needed for co occurring medical disorder 6. Acute intervention needed for co occurring psychiatric disorder 7. Severe withdrawal that cannot be handled at a lower level of care (continued vomiting, continued diarrhea, abnormal vital signs) requiring intravenous medication and/or fluids 8. Admission ROS BHS - HPI Chief Complaint: i need help to come in for rehab from cocaine Allergies/Adverse Reactions: Allergies Allergy/AdvReac Type Severity Reaction Status Date / Time No Known Allergies Allergy Verified 09/04/18 08:40 History of Present Illness: this 53 years old male with cocaine dependence,seeking help for rehab,last treatment in [facility] discharge on 08/16/18 history of hypertension,no medication for 1 year nicotine dependence 1/2 pack,does not want nicotine replacement longest sobriety 5 years Exam Limitations: No Limitations - Ebola screening Have you traveled outside of the country in the last 21 days: No Have you had contact with anyone from an Ebola affected area: No Do you have a fever: No - Review of Systems Constitutional: No Symptoms Reported, Malaise, Changes in sleep EENT: reports: No Symptoms Reported Respiratory: reports: No Symptoms reported Cardiac: reports: No Symptoms Reported GI: reports: No Symptoms Reported : reports: No Symptoms Reported Musculoskeletal: reports: No Symptoms Reported Integumentary: reports: No Symptoms Reported Neuro: reports: No Symptoms reported Endocrine: reports: No Symptoms Reported Hematology: reports: No Symptoms Reported Psychiatric: reports: No Sypmtoms Reported, Judgement Intact, Mood/Affect Appropiate, Orientated x3, other (insomnia) Other Systems: Reviewed and Negative Patient History - Patient Medical History Hx Anemia: No Hx Asthma: Yes (childhood asthma) Hx Chronic Obstructive Pulmonary Disease (COPD): No Hx Cancer: No Hx Cardiac Disorders: No Hx Congestive Heart Failure: No Hx Hypertension: Yes (no med) Hx Hypercholesterolemia: No Hx Pacemaker: No HX Cerebrovascular Accident: No Hx Seizures: No Hx Dementia: No Hx Diabetes: No Hx Gastrointestinal Disorders: No Hx Liver Disease: No Hx Genitourinary Disorders: No Hx Sexually Transmitted Disorders: No Hx Renal Disease (ESRD): No Hx Thyroid Disease: No Hx Human Immunodeficiency Virus (HIV): No (last 03/01 negative) Hx Hepatitis C: No Hx Depression: Yes (insomnia) Hx Suicide Attempt: No (denies) Hx Bipolar Disorder: No Hx Schizophrenia: No Other Medical History: no suicidal,no homicidal - Patient Surgical History Past Surgical History: Yes Hx Neurologic Surgery: No Hx Cataract Extraction: No Hx Cardiac Surgery: No Hx Lung Surgery: No Hx Breast Surgery: No Hx Breast Biopsy: No Hx Abdominal Surgery: No Hx Appendectomy: No Hx Cholecystectomy: No Hx Genitourinary Surgery: No Hx Section: No Hx Orthopedic Surgery: Yes (RIGHT THUMB DUE TO FX FROM PLAYING BALL) Anesthesia Reaction: No - PPD History Previous Implant?: Yes Documented Results: Negative w/o proof Implanted On Prior [facility] Admission?: Yes Date: 09/11/16 Results: 0 mm PPD to be Administered?: Yes - Smoking Cessation Smoking history: Current every day smoker Have you smoked in the past 12 months: Yes Aproximately how many cigarettes per day: 10 Cigars Per Day: 0 Hx Chewing Tobacco Use: No Initiated information on smoking cessation: Yes 'Breaking Loose' booklet given: 09/04/18 - Substance & Tx. History Hx Alcohol Use: No Hx Substance Use: Yes Substance Use Type: Cocaine Hx Substance Use Treatment: Yes ([facility] discharge 08/16/18) - Substances abused Crack Substance route: Skin popping Frequency: Daily Amount used: $150 Age of first use: 26 Date of last use: 09/03/18 Cocaine Substance route: Smoking Frequency: Daily Amount used: $150 Age of first use: 26 Date of last use: 09/03/18 Family Disease History - Family Disease History Family Disease History: Diabetes: Father (), Heart Disease: Father, CA: Mother () Admission Physical Exam BHS - Vital Signs Vital Signs: Vital Signs - 24 hr 09/04/18 09/04/18 08:34 08:55 Temperature 98 F 98 F Pulse Rate 71 71 Respiratory 18 18 Rate Blood Pressure 142/74 142/74 - Physical General Appearance: Yes: Within Normal Limits HEENTM: Yes: Within Normal Limits, LORIN, Pharynx Normal, Tm's normal Respiratory: Yes: Lungs Clear, Normal Breath Sounds, No Respiratory Distress Breast: Yes: Within Normal Limits Cardiology: Yes: Within Normal Limits, Regular Rhythm, Regular Rate, S1, S2 Abdominal: Yes: Within Normal Limits, Normal Bowel Sounds, Non Tender, Soft, Decreased BS Genitourinary: Yes: Within Normal Limits Back: Yes: Within Normal Limits Musculoskeletal: Yes: Within Normal Limits Extremities: Yes: Within Normal Limits 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: 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: 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-XII NML intact, Fully Oriented, Alert, Motor Strength 5/5 Integumentary: Yes: Within Normal Limits Lymphatic: Yes: Within Normal Limits - Diagnostic (1) Cocaine dependence Current Visit: No Status: Acute Qualifiers: Substance use status: uncomplicated Qualified Code(s): F14.20 - Cocaine dependence, uncomplicated (2) HTN (hypertension) Current Visit: No Status: Chronic Qualifiers: Hypertension type: essential hypertension Qualified Code(s): I10 - Essential (primary) hypertension (3) Nicotine dependence Current Visit: No Status: Chronic Qualifiers: Nicotine product type: cigarettes Substance use status: in withdrawal Qualified Code(s): F17.213 - Nicotine dependence, cigarettes, with withdrawal Cleared for Admission BHS - Detox or Rehab Claeared for Rehab Admission: Yes Breathalyzer - Breathalyzer Breathalyzer: 0 Urine Drug Screen - Test Device Lot number: [id number] Expiration date: 04/13/20 - Control Is test valid?: Yes - Results Drug screen NEGATIVE: No Urine drug screen results: THC-Marijuana, ACE-Cocaine, MET-Methamphetamine, BZO- Benzodiazepines Inpatient Rehab Admission - Rehab Decision to Admit Inpatient rehab admission?: Yes - Initial Determination Are CD services needed?: Yes Free of communicable disease: Yes Not in need of hospitalization: Yes - Rehab Admission Criteria Previous failed treatment: Yes Poor recovery environment: Yes Comorbidities: Yes Lacks judgement: No Patient is meeting Inpatient Rehab admission criteria:: Yes
[2018-09-04] MEDS ORDERED: P-EPHED 60MG/TRIPROLIDI 2.5MG TABLET PO PRN (09:17)
[2018-09-04] MEDS ORDERED: MAGNESIUM HYDROX 2400MG/30ML ORAL SUSPENSION 30 ML CUP PO PRN (09:17)
[2018-09-04] MEDS ORDERED: MAGNESIUM CITRATE 300 ML BOTTLE PO PRN (09:17)
[2018-09-04] MEDS ORDERED: ACETAMINOPHEN 325 MG TABLET (FP) PO PRN (09:17)
[2018-09-04] MEDS ORDERED: LOPERAMIDE HCL 2 MG CAPSULE PO PRN (09:17)
[2018-09-04] MEDS ORDERED: guaiFENesin 200 MG/10 ML 10 ML UNIT-DOSE CUPS PO PRN (09:17)
[2018-09-04] MEDS ORDERED: MENTHOL/PHENOL 1 EACH UD MM PRN (09:17)
[2018-09-04] MEDS: PRENATAL VITAMINS W/ FOLIC ACID TABLET (FP) PO SCH (11:04)
[2018-09-04 12:12] LABS: HEMATOCRIT 42.8 % (35.4-49); HEMOGLOBIN 14.5 GM/dL (11.7-16.9); MCH 30.1 pg (25.7-33.7); MCHC 33.9 g/dl (32.0-35.9); MEAN CELL VOLUME 88.8 fl (80-96); MEAN PLT VOLUME 9.5 fl (7.5-11.1); PLATELET COUNT 297 K/MM3 (134-434); RBC 4.82 M/mm3 (4.00-5.60); RDW 13.9 % (11.9-15.9); WHITE BLOOD COUNT 7.2 K/mm3 (4.0-10.0)
[2018-09-04 12:18] LABS: ALBUMIN 3.6 g/dl (3.4-5.0); ALK PHOS 134 U/L (45-117); ANION GAP 6 MMOL/L (8-16); BILIRUBIN,TOTAL 0.5 mg/dL (0.2-1); BLOOD UREA NITROGEN 10 mg/dL (7-18); CALCIUM 9.5 mg/dL (8.5-10.1); CHLORIDE 105 mmol/L (98-107); CO2 29 mmol/L (21-32); CREATININE 1.1 mg/dL (0.55-1.3); GLUCOSE,RANDOM 107 mg/dL (74-106); POTASSIUM 4.4 mmol/L (3.5-5.1); SGOT/AST 34 U/L (15-37); SGPT/ALT 54 U/L (13-61); SODIUM 139 mmol/L (136-145)
[2018-09-04] MEDS: hydrOXYzine PAMOATE 50 MG CAPSULE (FP) PO PRN (21:18)
[2018-09-04] MEDS: THIAMINE HCL 100 MG TABLET (FP) PO SCH (21:18)
[2018-09-05 03:08] LABS: PH,URINE 7.5 (5.0-8.0); URINE APPEARANCE CLEAR; URINE BILIRUBIN NEGATIVE (NEGATIVE); URINE COLOR YELLOW; URINE GLUCOSE (UA) NEGATIVE (NEGATIVE); URINE KETONE TRACE (NEGATIVE); URINE LEUK ESTERASE NEGATIVE (NEGATIVE); URINE NITRITE NEGATIVE (NEGATIVE); URINE PROTEIN NEGATIVE (NEGATIVE)
[2018-09-05] MEDS: PRENATAL VITAMINS W/ FOLIC ACID TABLET (FP) PO SCH (10:12)
[2018-09-05] MEDS: hydrOXYzine PAMOATE 50 MG CAPSULE (FP) PO PRN (10:33)
[2018-09-05] MEDS: THIAMINE HCL 100 MG TABLET (FP) PO SCH (21:16)
[2018-09-06] MEDS: PRENATAL VITAMINS W/ FOLIC ACID TABLET (FP) PO SCH (09:24)
[2018-09-06] MEDS: THIAMINE HCL 100 MG TABLET (FP) PO SCH (21:29)
[2018-09-06] MEDS: hydrOXYzine PAMOATE 50 MG CAPSULE (FP) PO PRN (21:29)
[2018-09-07] MEDS: PRENATAL VITAMINS W/ FOLIC ACID TABLET (FP) PO SCH (10:12)
[2018-09-07] MEDS: THIAMINE HCL 100 MG TABLET (FP) PO SCH (21:11)
[2018-09-07] MEDS: MELATONIN 5 MG TABLETS PO PRN (21:11)
[2018-09-07] MEDS: hydrOXYzine PAMOATE 50 MG CAPSULE (FP) PO PRN (21:12)
[2018-09-08] MEDS: PRENATAL VITAMINS W/ FOLIC ACID TABLET (FP) PO SCH (10:51)
[2018-09-08] MEDS: MAG HYDROX/AL HYDROX/SIMETH 30 ML UNIT-DOSE CUP PO PRN (22:12)
[2018-09-08] MEDS: MELATONIN 5 MG TABLETS PO PRN (22:12)
[2018-09-08] MEDS: THIAMINE HCL 100 MG TABLET (FP) PO SCH (22:12)
[2018-09-08] MEDS: hydrOXYzine PAMOATE 50 MG CAPSULE (FP) PO PRN (22:13)
[2018-09-09] MEDS: PRENATAL VITAMINS W/ FOLIC ACID TABLET (FP) PO SCH (10:22)
[2018-09-09] MEDS: MELATONIN 5 MG TABLETS PO PRN (21:14)
[2018-09-09] MEDS: hydrOXYzine PAMOATE 50 MG CAPSULE (FP) PO PRN (21:14)
[2018-09-09] MEDS: THIAMINE HCL 100 MG TABLET (FP) PO SCH (21:15)
[2018-09-10] MEDS: IBUPROFEN 400 MG TABLET (FP) PO PRN (06:28)
[2018-09-10] MEDS: PRENATAL VITAMINS W/ FOLIC ACID TABLET (FP) PO SCH (10:24)
[2018-09-10] MEDS: MELATONIN 5 MG TABLETS PO PRN (21:46)
[2018-09-10] MEDS: THIAMINE HCL 100 MG TABLET (FP) PO SCH (21:46)
[2018-09-10] MEDS: hydrOXYzine PAMOATE 50 MG CAPSULE (FP) PO PRN (21:46)
[2018-09-11] MEDS: HYDROCHLOROTHIAZIDE 12.5 MG CAPSULE (FP) PO SCH (10:56)
[2018-09-11] MEDS: PRENATAL VITAMINS W/ FOLIC ACID TABLET (FP) PO SCH (10:56)
[2018-09-11] MEDS: MAG HYDROX/AL HYDROX/SIMETH 30 ML UNIT-DOSE CUP PO PRN (11:43)
--- NOTE | 2018-09-11 14:06 | PN ---
BHS Progress Note (SOAP) Subjective: Patient with elevated blood pressure, reports headaches. Objective: no neurological deficits noted, PERRLA, CN2-12 intact. Heart rate regular, lungs clear. 09/11/18 14:04 CBC, BMP 09/04/18 09:25 09/04/18 09:25 Vital Signs (72 hours) 09/09/18 09/09/18 09/09/18 00:30 03:30 07:26 Temperature 97.8 F Pulse Rate 71 Respiratory 20 20 18 Rate Blood Pressure 152/94 09/10/18 09/10/18 09/10/18 00:30 03:30 06:00 Temperature 98.1 F Pulse Rate 71 Respiratory 18 18 20 Rate Blood Pressure 149/97 09/11/18 09/11/18 09/11/18 00:30 03:30 06:49 Temperature 97.4 F L Pulse Rate 70 Respiratory 18 18 18 Rate Blood Pressure 159/97 Assessment: 09/11/18 14:05 Hypertension Plan: HCTZ 12.5 ordered. Will continue to monitor and increase dose if needed.
[2018-09-11] MEDS: THIAMINE HCL 100 MG TABLET (FP) PO SCH (22:11)
[2018-09-12] MEDS: HYDROCHLOROTHIAZIDE 12.5 MG CAPSULE (FP) PO SCH (09:10)
[2018-09-12] MEDS: PRENATAL VITAMINS W/ FOLIC ACID TABLET (FP) PO SCH (09:10)
--- NOTE | 2018-09-12 11:41 | PN ---
BHS Progress Note Note: Last BP was 137/83; on a downward trend. Will continue to monitor. On HCTZ 12.5 mg. If BP does not approach normal limits, will increase. Vital Signs Period Temp Pulse Resp BP Sys/[place] Pulse Ox Last 24 Hr 97.9 F 70-83 18-20 137-154/83-96
[2018-09-12] MEDS: MAG HYDROX/AL HYDROX/SIMETH 30 ML UNIT-DOSE CUP PO PRN (14:44)
[2018-09-12] MEDS: THIAMINE HCL 100 MG TABLET (FP) PO SCH (21:13)
[2018-09-13] MEDS: MAG HYDROX/AL HYDROX/SIMETH 30 ML UNIT-DOSE CUP PO PRN ×2 (02:42→21:54)
[2018-09-13] MEDS ORDERED: cloNIDine HCL 0.1 MG TABLET PO ONE (07:03)
--- NOTE | 2018-09-13 07:05 | PN ---
BHS Progress Note Note: Blood pressure this visit is B/P 150/97. Patient is asymptomatic Vital Signs Temperature 98.1 F 09/13/18 06:54 Pulse Rate 78 09/13/18 06:54 Respiratory Rate 18 09/13/18 06:54 Blood Pressure 150/97 09/13/18 06:54 O2 Sat by Pulse Oximetry (%) Action: Clonidine 0.1mg tablet oral ordered
[2018-09-13] MEDS ORDERED: HYDROCHLOROTHIAZIDE 12.5 MG CAPSULE (FP) PO SCH ×2 (07:25→10:12)
[2018-09-13] MEDS: IBUPROFEN 400 MG TABLET (FP) PO PRN (09:12)
[2018-09-13] MEDS: PRENATAL VITAMINS W/ FOLIC ACID TABLET (FP) PO SCH (09:13)
[2018-09-13] MEDS: THIAMINE HCL 100 MG TABLET (FP) PO SCH (21:54)
[2018-09-14] MEDS: HYDROCHLOROTHIAZIDE 25 MG TABLET (FP) PO SCH (05:57)
[2018-09-14] MEDS ORDERED: HYDROCHLOROTHIAZIDE 12.5 MG CAPSULE (FP) PO SCH (06:00)
[2018-09-14] MEDS: PRENATAL VITAMINS W/ FOLIC ACID TABLET (FP) PO SCH (09:49)
[2018-09-14] MEDS: THIAMINE HCL 100 MG TABLET (FP) PO SCH (21:32)
[2018-09-14] MEDS: MAG HYDROX/AL HYDROX/SIMETH 30 ML UNIT-DOSE CUP PO PRN (21:34)
[2018-09-15] MEDS: HYDROCHLOROTHIAZIDE 25 MG TABLET (FP) PO SCH (06:09)
[2018-09-15] MEDS: PRENATAL VITAMINS W/ FOLIC ACID TABLET (FP) PO SCH (10:02)
[2018-09-15] MEDS: THIAMINE HCL 100 MG TABLET (FP) PO SCH (21:36)
[2018-09-15] MEDS: MELATONIN 5 MG TABLETS PO PRN (21:38)
[2018-09-16] MEDS: HYDROCHLOROTHIAZIDE 25 MG TABLET (FP) PO SCH (06:17)
[2018-09-16] MEDS: PRENATAL VITAMINS W/ FOLIC ACID TABLET (FP) PO SCH (09:29)
[2018-09-16] MEDS ORDERED: diphenhydrAMINE HCL 25 MG CAPSULE (FP) PO ONE (20:14)
[2018-09-16] MEDS: THIAMINE HCL 100 MG TABLET (FP) PO SCH (22:28)
[2018-09-17] MEDS: HYDROCHLOROTHIAZIDE 25 MG TABLET (FP) PO SCH (06:05)
[2018-09-17] MEDS: PRENATAL VITAMINS W/ FOLIC ACID TABLET (FP) PO SCH (10:28)
--- NOTE | 2018-09-17 10:44 | PN ---
S Progress Note Note: PATIENT REQUESTING TO REPEAT URINE TOXICOLOGY PRIOR TO COMPLETING REHAB ( EMPLOYMENT REQUIREMENT). WILL ORDER URINE TOXICOLOGY TODAY. Vital Signs Temperature 98.2 F 09/17/18 07:04 Pulse Rate 84 09/17/18 09:30 Respiratory Rate 18 09/17/18 09:30 Blood Pressure 114/79 09/17/18 09:30 O2 Sat by Pulse Oximetry (%)
[2018-09-17] MEDS: IBUPROFEN 400 MG TABLET (FP) PO PRN (11:46)
[2018-09-17] MEDS: THIAMINE HCL 100 MG TABLET (FP) PO SCH (21:30)
[2018-09-17] MEDS: MELATONIN 5 MG TABLETS PO PRN (21:30)
[2018-09-18] MEDS: HYDROCHLOROTHIAZIDE 25 MG TABLET (FP) PO SCH (05:47)
[2018-09-18 07:02] VITALS: BP 135/95; PULSE 70; TEMP 98.1
--- NOTE | 2018-09-18 08:38 | PN ---
[facility] Progress Note (SOAP) Subjective: Patient discharged today. Objective: Alert and oriented x3; no neurological deficits noted, heart sounds regular, lungs clear, abd soft, non-tender, non-distended 09/18/18 08:37 CBC, BMP 09/04/18 09:25 09/04/18 09:25 09/18/18 08:37 Vital Signs (72 hours) 09/15/18 09/16/18 09/16/18 09:30 00:30 03:30 Temperature Pulse Rate 80 Respiratory 18 18 18 Rate Blood Pressure 121/89 09/16/18 09/16/18 09/17/18 07:06 09:30 00:30 Temperature 97.8 F Pulse Rate 70 75 Respiratory 18 16 18 Rate Blood Pressure 148/90 155/87 09/17/18 09/17/18 09/17/18 03:30 07:04 09:30 Temperature 98.2 F Pulse Rate 75 84 Respiratory 18 18 18 Rate Blood Pressure 138/97 114/79 09/18/18 09/18/18 09/18/18 00:30 03:30 07:02 Temperature 98.1 F Pulse Rate 70 Respiratory 18 18 18 Rate Blood Pressure 135/95 09/18/18 10:26 Assessment: Medically stable for discharge Discharge dx: Opioid dependence, chronic Hypnotic dependence, chronic ETOH dependence, chronic 09/18/18 10:27 Plan: Aftercare at [facility], Primary care with Dr. Gabriele cunha [facility]. Patient did not have any home medications.
== END 2018-09-18 08:50 | disposition home or self-care (01) | DRG 772 ==
LOC: YASAS 08:31 → Y3W 09:11
PROVIDERS: ADMIT Neuromusculoskeletal Medicine & OMM; ATTEND Neuromusculoskeletal Medicine & OMM
PROC: HZ42ZZZ Group Counseling for Substance Abuse Treatment, Cognitive-Behavioral (ICD-10-PCS; principal; 2018-09-04)
DX: F11.20 Opioid dependence, uncomplicated (principal); F10.20 Alcohol dependence, uncomplicated; F14.20 Cocaine dependence, uncomplicated; F13.20 Sedative, hypnotic or anxiolytic dependence, uncomplicated; F51.05 Insomnia due to other mental disorder; I10 Essential (primary) hypertension; Z59.0 Homelessness
CPT/HCPCS: 36415; 80053; 81003; 85027; 86593; 87389; J0735

== ENCOUNTER 2020-09-27 15:13 | Inpatient (IN) | payer OTHER ==
[2020-09-27 15:56] VITALS: BMI 32.8
[2020-09-27] MEDS ORDERED: MAG HYDROX/AL HYDROX/SIMETH 30 ML UNIT-DOSE CUP PO PRN (16:27)
[2020-09-27] MEDS ORDERED: ONDANSETRON *ODT* 4 MG TABLET SL PRN (16:27)
[2020-09-27] MEDS ORDERED: BISMUTH SUBSALICYLATE 524 MG/30 ML UD PO PRN (16:27)
[2020-09-27] MEDS ORDERED: MENTHOL/PHENOL 1 EACH UD MM PRN (16:27)
[2020-09-27] MEDS ORDERED: MAGNESIUM CITRATE 300 ML BOTTLE PO PRN (16:27)
[2020-09-27] MEDS ORDERED: MAGNESIUM HYDROX 2400MG/30ML ORAL SUSPENSION 30 ML CUP PO PRN (16:27)
[2020-09-27] MEDS ORDERED: ACETAMINOPHEN 325 MG TABLET (FP) PO PRN ×2 (16:27)
[2020-09-27] MEDS ORDERED: IBUPROFEN 400 MG TABLET (FP) PO PRN (16:27)
[2020-09-27] MEDS ORDERED: chlordiazePOXIDE HCL 25 MG CAPSULE PO PRN (16:27)
[2020-09-27] MEDS ORDERED: NICOTINE POLACRILEX 2 MG GUM BUC PRN (16:27)
[2020-09-27] MEDS: chlordiazePOXIDE HCL 25 MG CAPSULE PO SCH ×2 (17:58→22:47)
[2020-09-27] MEDS: hydrOXYzine PAMOATE 25 MG CAPSULE (FP) PO SCH ×2 (18:05→22:46)
[2020-09-27] MEDS ORDERED: MELATONIN 5 MG TABLETS PO SCH (22:00)
[2020-09-27] MEDS: THIAMINE HCL 100 MG TABLET (FP) PO SCH (22:46)
[2020-09-28] MEDS: chlordiazePOXIDE HCL 25 MG CAPSULE PO SCH ×4 (05:42→22:12)
[2020-09-28] MEDS: hydrOXYzine PAMOATE 25 MG CAPSULE (FP) PO SCH ×5 (05:43→22:12)
[2020-09-28] MEDS: PRENATAL VITAMINS W/ FOLIC ACID TABLET (FP) PO SCH (10:01)
[2020-09-28] MEDS: HYDROCHLOROTHIAZIDE 25 MG TABLET (FP) PO SCH (10:01)
[2020-09-28] MEDS: NICOTINE 7 MG/24 HOURS TOPICAL PATCH TD SCH (10:01)
[2020-09-28 10:46] LABS: BLOOD UREA NITROGEN 13.7 mg/dL (7-18); CALCIUM 8.4 mg/dL (8.5-10.1)
[2020-09-28 10:48] LABS: ALBUMIN 3.2 g/dl (3.4-5.0); HEMATOCRIT 41.9 % (35.4-49); HEMOGLOBIN 14.4 GM/dL (11.7-16.9); MCHC 34.3 g/dl (32.0-35.9); MEAN CELL VOLUME 87.5 fl (80-96); MEAN PLT VOLUME 8.8 fl (7.5-11.1); PLATELET COUNT 313 K/MM3 (134-434); RBC 4.78 M/mm3 (4.00-5.60); RDW 14.1 % (11.9-15.9); WHITE BLOOD COUNT 8.9 K/mm3 (4.0-10.0)
[2020-09-28 10:51] LABS: CREATININE 1.1 mg/dL (0.55-1.3)
[2020-09-28 10:52] LABS: BILIRUBIN,TOTAL 0.4 mg/dL (0.2-1); TOT PROT 6.6 g/dl (6.4-8.2)
[2020-09-28] MEDS ORDERED: SUVOREXANT 10 MG TABLET PO PRN (22:00)
[2020-09-28] MEDS: THIAMINE HCL 100 MG TABLET (FP) PO SCH (22:11)
[2020-09-29] MEDS: chlordiazePOXIDE HCL 25 MG CAPSULE PO SCH ×4 (05:47→22:37)
[2020-09-29] MEDS: hydrOXYzine PAMOATE 25 MG CAPSULE (FP) PO SCH (05:47)
[2020-09-29] MEDS ORDERED: hydrOXYzine PAMOATE 25 MG CAPSULE (FP) PO PRN (08:52)
[2020-09-29] MEDS: PRENATAL VITAMINS W/ FOLIC ACID TABLET (FP) PO SCH (10:06)
[2020-09-29] MEDS: NICOTINE 7 MG/24 HOURS TOPICAL PATCH TD SCH (10:07)
[2020-09-29] MEDS: HYDROCHLOROTHIAZIDE 25 MG TABLET (FP) PO SCH (10:07)
[2020-09-29] MEDS: THIAMINE HCL 100 MG TABLET (FP) PO SCH (22:37)
[2020-09-29] MEDS: METHOCARBAMOL 500 MG TABLET PO PRN (22:39)
[2020-09-30] MEDS ORDERED: chlordiazePOXIDE HCL 10 MG CAPSULE PO PRN
[2020-09-30] MEDS: METHOCARBAMOL 500 MG TABLET PO PRN (05:40)
[2020-09-30] MEDS: chlordiazePOXIDE HCL 10 MG CAPSULE PO SCH ×2 (05:41→10:14)
[2020-09-30 06:39] VITALS: TEMP 97.2
[2020-09-30 08:53] VITALS: BP 122/82; PULSE 91
[2020-09-30] MEDS: PRENATAL VITAMINS W/ FOLIC ACID TABLET (FP) PO SCH (10:14)
[2020-09-30] MEDS: HYDROCHLOROTHIAZIDE 25 MG TABLET (FP) PO SCH (10:14)
[2020-09-30] MEDS: NICOTINE 7 MG/24 HOURS TOPICAL PATCH TD SCH (10:15)
[2020-10-01] MEDS ORDERED: chlordiazePOXIDE HCL 10 MG CAPSULE PO SCH (05:00)
[2020-10-02] MEDS ORDERED: chlordiazePOXIDE HCL 10 MG CAPSULE PO ONE (05:00)
== END 2020-09-30 10:52 | disposition left against medical advice (07) | DRG 770 ==
LOC: YASAS 15:13 → Y3N 17:19
PROVIDERS: ADMIT Allergy & Immunology; ATTEND Allergy & Immunology
PROC: HZ2ZZZZ Detoxification Services for Substance Abuse Treatment (ICD-10-PCS; principal; 2020-09-27)
DX: F10.230 Alcohol dependence with withdrawal, uncomplicated (principal); F14.20 Cocaine dependence, uncomplicated; F12.20 Cannabis dependence, uncomplicated; F17.210 Nicotine dependence, cigarettes, uncomplicated; F19.282 Other psychoactive substance dependence with psychoactive substance-induced sleep disorder; G47.00 Insomnia, unspecified; I10 Essential (primary) hypertension; K21.9 Gastro-esophageal reflux disease without esophagitis; M79.7 Fibromyalgia; M54.5 Low back pain; G89.29 Other chronic pain; Z56.0 Unemployment, unspecified; Z59.0 Homelessness
CPT/HCPCS: 36415; 80053; 85027; 86780; 93005; 93010; C9803; U0003; U0005